=== PATIENT | female | born 1990 | race Caucasian/White ===

== ENCOUNTER 2019-10-20 22:52 | Emergency (ER) | payer MEDICAID, SELFPAY ==
[2019-10-20] VITALS (13 sets, daily range): BP systolic 106–144; BP diastolic 64–101; PULSE 75–89; RESP 16; TEMP 36.8; O2SAT 99–100; BMI 17.9
--- NOTE | 2019-10-20 22:53 | ECG_ITS ---
Measurements Intervals [place] Rate: 72 P: 63 AL: 129 QRS: 29 QRSD: 80 T: 49 QT: 402 QTc: 442 SINUS RHYTHM No previous ECG available for comparison Electronically Signed On 10-21-2019 20:40:54 ANTHROPOLOGIST by Allison Collazo M.D. [email or web address]
--- NOTE | 2019-10-20 22:57 | ED_ITS ---
HPI - Dizziness General: Chief Complaint: Headache Stated Complaint: dizzy/loc Time Seen by Provider: 10/20/19 22:57 Source: patient Mode of arrival: ambulatory Limitations: no limitations History of Present Illness: HPI Narrative: Patient comes in today with complaints of a headache and malaise for the last 2 days. Patient reports this evening she felt worse and got real lightheaded while sitting down and then lost consciousness and hit her head against the desk. Patient reports history of depression and anemia which she takes routine medications for. Patient appears mildly unwell. Patient appears in mild pain. Associated symptoms: Reports headache(s) Review of Systems General: Reports: 10 or more systems reviewed and unremarkable except in HPI and below Neuro: Reports: headache PFSH ED PFSH: Statuses (acute, chronic, etc) shown below reflect problem list status as previously entered and may not be historically accurate Social History Smoking and tobacco status: never smoked Physical Exam Const: COMMON NORMALS: no apparent distress and oriented x3 GENERAL APPEARANCE: cooperative HENMT: COMMON NORMALS: normocephalic, external ears normal, EAC's normal, TM's normal bilaterally and external nose normal HEAD & SCALP: normal to inspection and normocephalic FACE & SINUS: normal facial exam NOSE: external nose normal GENERAL EAR: hearing not grossly impaired EXTERNAL EAR: Yes external ears normal EXTERNAL AUDITORY CANAL: EAC's normal TYMPANIC MEMBRANE: TM's normal bilaterally MOUTH: oral and palatal mucosa normal THROAT: posterior oropharynx normal Eye: COMMON NORMALS: PERRL and EOMs intact bilaterally PUPIL: Yes PERRL Neck/C-Spine: COMMON NORMALS: full ROM and no lymphadenopathy Lymph: LYMPHATIC: no lymphedema noted Chest: COMMONS NORMALS: inspection of chest normal and palpation of chest normal Resp: COMMON NORMALS: normal respiratory effort and clear to auscultation bilaterally AUSCULTATION: clear to auscultation bilaterally Cardio: COMMON NORMALS: regular rate and regular rhythm RATE: regular rate RHYTHM: regular rhythm GI: COMMON NORMALS: normal to inspection, nondistended, normoactive bowel sounds and non-tender : COMMON NORMALS: Yes no CVA tenderness BLADDER/KIDNEY EXAM: Yes no CVA tenderness Back/Pelvis: COMMON NORMALS: no CVA tenderness and thoracic and lumbar spine normal to inspection Extremity: COMMON NORMALS: normal to inspection GENERAL: No edema Neuro: COMMON NORMALS: oriented x3, moves all extremities and no focal motor deficits Psych: COMMON NORMALS: mental status grossly normal and cooperative Skin: COMMON NORMALS: no rashes or lesions noted GENERAL SKIN EXAM: no rashes or lesions noted Course Vital Signs: Vital signs: Vital Signs Temperature 98.2 F 10/20/19 22:59 Pulse Rate 76 10/20/19 23:09 Respiratory Rate 16 10/20/19 22:59 Blood Pressure 104/65 10/21/19 00:25 Pulse Oximetry 100 10/21/19 00:25 MDM - Dizziness MDM Narrative: Medical decision making narrative: Patient comes in presents with headache starting yesterday. Patient reports history of migraine. Patient reports that headache is different than her usual migraine. Patient reports no previous CT scan of the head. Patient does have a chronic history of anemia. On exam respirations are even lungs are clear to auscultation. Skin is warm and dry and color is pale. Abdomen is soft with decreased bowel sounds. Differential diagnosis includes migraine, intracranial bleeding, sinusitis, tension headache, anemia. Laboratory values noted anemia with hemoglobin 8.7 which compared to previous history of 11 in July 2019. Discussion with patient realized patient occasionally has blood in her stool she has had problems with hemorrhoids in the past. Recommend probably patient have a upper and lower GI endoscopy for further evaluation which patient was agreeable for the case management referral. Patient also reported that her anemia is very chronic and she has been recommended to see a manager biostatistics but she has not been referred to at this time we will refer to hematology for further evaluation. Patient reports understanding, CT scan was negative for any intracranial bleeding. Patient was treated for her headache with good results. Patient reports understanding of care plan and need for follow-up. Lab Data: Labs: Lab Results 10/20/19 10/20/19 10/20/19 Range/Units 22:03 23:00 23:35 WBC 4.6 (4.0-10.0) 10^3/ uL RBC 4.06 L (4.1-5.3) 10^6/u L Hgb 8.7 L (11.5-15.3) g/dL Hct 30.4 L (37.0-47.0) % MCV 74.9 L (81-99) fL MCH 21.4 L (28.0-34.0) pg MCHC 28.6 L (30.0-36.0) g/dL RDW 20.5 H (12.1-15.1) % Plt Count 365 (130-400) 10^3/c mm MPV 8.6 (7.4-10.4) fL Neut % (Auto) 48.1 % Lymph % (Auto) 39.5 % Stevens % (Auto) 9.8 % Eos % (Auto) 1.7 % Baso % (Auto) 0.7 % Neut # (Auto) 2.2 (1.8-7.7) 10^3/u L Lymph # (Auto) 1.8 (0.8-4.8) 10^3/u L Stevens # (Auto) 0.5 (0.2-0.9) 10^3/u L Eos # (Auto) 0.1 (0.0-0.8) 10^3/u L Baso # (Auto) 0.0 (0.0-0.1) 10^3/u L Nucleated RBC % (a uto) 0 % Nucleated RBCs # 0.0 /100WBC Sodium 139 (136-145) mmol/L Potassium 3.6 (3.5-5.1) mmol/L Chloride 101 (98-107) mmol/L Carbon Dioxide 26 (22-29) mmol/L Anion Gap 15.6 (5-19) BUN 8 (6-20) mg/dL Creatinine 0.6 (0.5-0.9) mg/dL GFR Calculation 119.9 (90-130) mL/min Glucose 94 (65-115) mg/dL Calcium 9.9 (8.5-10.5) mg/dL Total Bilirubin 0.2 (0.15-1.2) mg/dL AST 19 (0-32) U/L ALT 9 (0-33) U/L Alkaline Phosphata se 82 (35-105) IU/L Total Protein 8.1 (6.6-8.7) g/dL Albumin 5.1 (3.5-5.2) g/dL Globulin 3.0 (1.3-4.6) g/dL HCG, Qual (Negative) Influenza Type A A g Negative (Negative) POC Influenza B Ag Negative (Negative) 10/20/19 Range/Units 23:45 WBC (4.0-10.0) 10^3/ uL RBC (4.1-5.3) 10^6/u L Hgb (11.5-15.3) g/dL Hct (37.0-47.0) % MCV (81-99) fL MCH (28.0-34.0) pg MCHC (30.0-36.0) g/dL RDW (12.1-15.1) % Plt Count (130-400) 10^3/c mm MPV (7.4-10.4) fL Neut % (Auto) % Lymph % (Auto) % Stevens % (Auto) % Eos % (Auto) % Baso % (Auto) % Neut # (Auto) (1.8-7.7) 10^3/u L Lymph # (Auto) (0.8-4.8) 10^3/u L Stevens # (Auto) (0.2-0.9) 10^3/u L Eos # (Auto) (0.0-0.8) 10^3/u L Baso # (Auto) (0.0-0.1) 10^3/u L Nucleated RBC % (a uto) % Nucleated RBCs # /100WBC Sodium (136-145) mmol/L Potassium (3.5-5.1) mmol/L Chloride (98-107) mmol/L Carbon Dioxide (22-29) mmol/L Anion Gap (5-19) BUN (6-20) mg/dL Creatinine (0.5-0.9) mg/dL GFR Calculation (90-130) mL/min Glucose (65-115) mg/dL Calcium (8.5-10.5) mg/dL Total Bilirubin (0.15-1.2) mg/dL AST (0-32) U/L ALT (0-33) U/L Alkaline Phosphata se (35-105) IU/L Total Protein (6.6-8.7) g/dL Albumin (3.5-5.2) g/dL Globulin (1.3-4.6) g/dL HCG, Qual Negative (Negative) Influenza Type A A g (Negative) POC Influenza B Ag (Negative) EKG Data^: EKG 1: Attestation: I personally reviewed and interpreted this EKG as follows: (2338, NSR, 72 bpm, regular rate, no ectopy, no st elevation) Discharge Plan Discharge Patient Disposition: Home, Self-Care Clinical Impression: Blood in stool Headache Qualifiers: Headache type: unspecified Headache chronicity pattern: acute headache Intractability: not intractable Qualified Code(s): R51 - Headache Anemia Qualifiers: Anemia type: unspecified type Qualified Code(s): D64.9 - Anemia, unspecified Condition: Stable Prescriptions: No Action buspirone 5 mg Tablet 5 mg PO TID RF: 0 Senna Laxative 8.6 mg Tablet 8.6 mg PO DAILY RF: 0 Celexa 20 mg Tablet 20 mg PO DAILY RF: 0 Iron (ferrous sulfate) 325 mg (65 mg iron) Tablet 325 mg PO TID RF: 0 Colace 100 mg Capsule 100 mg PO BID RF: 0 albuterol sulfate 90 mcg/actuation Hfa Aerosol Inhaler 1 inh INHALATION QID PRN (Reason: Shortness Of Breath Or Wheezing) RF: 0 Referrals: Jaki Bustamante MD [Primary Care Provider] - Discharge Diet: Usual diet Discharge Activity: Increase activity as tolerated Activity Restrictions/Additional Instructions: Drink plenty of fluids Activity as tolerated Follow-up with primary care in one week Return to ER for worsening symptoms or new concerns Coding Level of Care Code ED Fisheries Biologist for Cesia Curiel Exam Problem Focused
[2019-10-20 23:06] LABS: Basophils % 0.7 %; Eosinophils # 0.1 10^3/uL (0.0-0.8); Eosinophils % 1.7 %; Hematocrit 30.4 % (37.0-47.0); Hemoglobin 8.7 g/dL (11.5-15.3); Lymphocytes # 1.8 10^3/uL (0.8-4.8); Lymphocytes % 39.5 %; Mean Corpuscular HGB Conc 28.6 g/dL (30.0-36.0); Mean Corpuscular Hemoglobin 21.4 pg (28.0-34.0); Mean Corpuscular Volume 74.9 fL (81-99); Mean Platelet Volume 8.6 fL (7.4-10.4); Monocytes # 0.5 10^3/uL (0.2-0.9); Monocytes % 9.8 %; Neutrophils # 2.2 10^3/uL (1.8-7.7); Neutrophils % 48.1 %; Nucleated Red Blood Cells % 0 %; Platelet Count 365 10^3/cmm (130-400); Red Blood Count 4.06 10^6/uL (4.1-5.3); Red Cell Distribution Width 20.5 % (12.1-15.1); White Blood Count 4.6 10^3/uL (4.0-10.0)
--- NOTE | 2019-10-20 23:07 | CTR_ITS ---
PROCEDURE INFORMATION: Exam: CT Head Without Contrast Exam date and time: 10/20/2019 11:28 PM Age: 29 years old Clinical indication: Pain; Dizziness and syncope and collapse; Headache not specified; Additional info: Headache anemia TECHNIQUE: Imaging protocol: Computed tomography of the head without contrast. Total DLP: 835.07 mGy-cm Radiation optimization: All CT scans at this facility use at least one of these dose optimization techniques: automated exposure control; mA and/or kV adjustment per patient size (includes targeted exams where dose is matched to clinical indication); or iterative reconstruction. COMPARISON: CT head wo con* [id number] 05/01/2015 9:45 PM FINDINGS: Brain: Normal. No hemorrhage. Unremarkable white matter. No mass effect. Ventricles: Normal. No ventriculomegaly. Bones/joints: Unremarkable. No acute fracture. Sinuses: Visualized sinuses are unremarkable. No fluid levels. Mastoid air cells: Visualized mastoid air cells are well aerated. Soft tissues: Unremarkable. CT/CT head wo con* [id number] IMPRESSION: No acute intracranial abnormality. Radiation Dose CTDIVOL = (mGy): DLP = 835.07 (mGy-cm)
[2019-10-20] MEDS: HYDROcodone-acetaminophen 5-325 mg Tablet 1 TAB PO (23:15)
[2019-10-20 23:33] LABS: Alanine Aminotransferase 9 U/L (0-33); Albumin Level 5.1 g/dL (3.5-5.2); Alkaline Phosphatase 82 IU/L (35-105); Anion Gap 15.6 (5-19); Aspartate Amino Transferase 19 U/L (0-32); Blood Urea Nitrogen 8 mg/dL (6-20); Calcium 9.9 mg/dL (8.5-10.5); Carbon Dioxide 26 mmol/L (22-29); Chloride 101 mmol/L (98-107); Glomerular Filtration Rate 119.9 mL/min (90-130); Glucose 94 mg/dL (65-115); Potassium 3.6 mmol/L (3.5-5.1); Sodium 139 mmol/L (136-145); Total Bilirubin 0.2 mg/dL (0.15-1.2); Total Protein 8.1 g/dL (6.6-8.7)
--- NOTE | 2019-10-20 23:36 | PC.NURSE ---
done by nurse
[2019-10-20 23:57] LABS: HCG Qualitative Urine. Negative (Negative)
[2019-10-21] VITALS (14 sets, daily range): BP systolic 104–130; BP diastolic 65–73; PULSE 81; RESP 18; O2SAT 98–100
[2019-10-21 00:05] LABS: Influenza A by IFA Negative (Negative); Influenza B by IFA Negative (Negative)
[2019-10-21] MEDS: ketorolac 30 mg/mL INJ IM (01:08)
[2019-10-21] MEDS: promethazine 25 mg/mL SDV 1 mL IM (01:08)
--- NOTE | 2019-10-22 14:15 | DCPLANNER ---
trailer park manager had message to schedule a follow up appointment for patient with [facility] and a diagnostic technician. trailer park manager called [facility], spoke with Linnette, a follow up appointment is scheduled for Friday, October 27, 2019 at 1:[address] Beltran. trailer park manager also had a referral for a diagnostic technician, case resolution specialist called Melany Brownlee at oncology and left a voice mail for her to return case finisher phone call. trailer park manager called and left a message for patient to return case finisher phone call.
--- NOTE | 2019-10-28 09:51 | DCPLANNER ---
Addendum entered by Danica Sood 10/28/19 10:10: A follow up appointment with [facility] has been rescheduled for Sunday, November 03, 2019 at 2:[address] Beltran. Original Note: condominium association manager called Melany Brownlee at [facility], and made referral to a hematology. condominium association manager was told that patients information would be printed and reviewed. Clinic will call trimming caser and patient with appointment information. condominium association manager also noticed that patients appointment that was scheduled with [facility] had been cancelled. condominium association manager called patient to update patient about referral to hematology, and that the clinic will be calling patient with appointment information. condominium association manager asked patient about appointment scheduled, patient had wrong date written down. condominium association manager transferred patient to the clinic to reschedule that appointment.
--- NOTE | 2019-11-19 08:14 | DCPLANNER ---
Appointment with [facility] was rescheduled and patient did attend appointment.
== END 2019-10-21 01:51 | disposition home or self-care (01) ==
PROVIDERS: Emergency Medicine; Emergency Provider Nurse Practitioner Family; Family Provider Family Medicine; PCP Family Medicine
DX: K92.1 Melena (principal); R51 Headache; D64.9 Anemia, unspecified
CPT/HCPCS: 36415; 70450; 80053; 81025; 85025; 87804; 93005; 96372; 99284; J1885; J2550

== ENCOUNTER 2019-11-10 13:53 | Outpatient (CLI) | payer MEDICAID, SELFPAY ==
[2019-11-10 14:47] LABS: Basophils % 0.9 %; Eosinophils # 0.1 10^3/uL (0.0-0.8); Eosinophils % 2.6 %; Hematocrit 31.4 % (37.0-47.0); Hemoglobin 8.9 g/dL (11.5-15.3); Lymphocytes # 1.7 10^3/uL (0.8-4.8); Lymphocytes % 38.1 %; Mean Corpuscular HGB Conc 28.3 g/dL (30.0-36.0); Mean Corpuscular Hemoglobin 21.3 pg (28.0-34.0); Mean Corpuscular Volume 75.1 fL (81-99); Mean Platelet Volume 9.2 fL (7.4-10.4); Monocytes # 0.5 10^3/uL (0.2-0.9); Monocytes % 11.2 %; Neutrophils # 2.2 10^3/uL (1.8-7.7); Neutrophils % 47.2 %; Nucleated Red Blood Cells % 0 %; Platelet Count 353 10^3/cmm (130-400); Red Blood Count 4.18 10^6/uL (4.1-5.3); White Blood Count 4.6 10^3/uL (4.0-10.0)
[2019-11-10 18:06] LABS: Ferritin 5 ng/mL (15-150); Iron 21 ug/dL (37-145); Percent Saturation 5.1 % (20-50); Total Iron Binding Capacity 408 mcg/dl; Unsaturated Iron Binding 387 ug/dL (112-347)
[2019-11-10 18:21] LABS: Vitamin B12 357 pg/mL (232-1245)
--- NOTE | 2019-11-11 15:01 | ONC CON_ITS ---
Dr. Morris New Patient Note Patient: Kina Perrin Unit #: [id number]: [id number] Dicatated By: Maryse Morris M.D.Date of Visit: Nov 10, 2019 Onc MED New Patient/Consult Referring Physician: Bhanu Azevedo NP History of Present Illness: Mrs. Kina Perrin, is a 29-year-old female with lifelong history of anemia, as per patient she thinks she was about 8-year-old when she was told about anemia and has been taken oral iron off and on since then as per patient in 2010 when she went for blood donation, she was found to have hemoglobin around 6 g and she was given 2 units of packed RBCs, and then in April 2017, when she was her hemoglobin dropped down to 6.4 g at that time she was given 3 units of packed RBCs and third time in July 2019 her routine follow-up lab showed hemoglobin down 7.2 g and she was given 2 units of packed RBCs with that her hemoglobin improved to 11 g. Then repeat labs on 10/20/2019 in her PMDs office showed white blood count 4.6 hemoglobin 8.7 hematocrit 30.4 MCV 74.9 platelets 365,000 was on oral iron supplement. She was referred to hematology clinic for evaluation Patient has history of hemorrhoids for which she underwent surgery with some relief and as per patient at that time she underwent low colonoscopy but not the full exam. Never had EGD done. She also has history of heavy menstrual periods Usually last 5-7 days and first 4-5 days of really heavy, as per patient she did underwent uterine biopsy and evaluation and she was told she has benign ovarian cysts She will also diagnosed with early-stage cervical cancer in March 2019 at that time she underwent conization now being monitored by SOFTWARE APPLICATION TESTER. X She has family history of B12 deficiency anemia and most of her family member take B12 supplements. Next No family history of hemoglobinopathy. Patient denies any history of jaundice, denies any history of melena or hematochezia except some to fresh blood in her stools due to hemorrhoids. Complaining of generalized weakness and fatigue, also palpitation and shortness of breath on exertion and some time low extremity edema. Also complaining of craving for ice Patient denies any night sweats, denies any weight loss or recent fevers. Denies any peripheral lymphadenopathy. Denies any heartburn indigestion but sometime cramps and constipation and darker stools due to iron supplement. Past Medical History: Anemia. Past Surgical History: Ms. Perrin's surgical/procedural history consists of colonoscopy. Cone biopsy of cervix . Medications: busPIRone HCl 1 Tablet (of 5 mg) Oral t.i.d., CeleXA 1 Tablet (of 20 mg) Oral daily, Colace 1 - 2 Capsule (of 100 mg) Oral daily PRN, Ferrous Sulfate 1 Tablet (of 325 (65 fe) mg) Oral daily, Senna 1 - 2 Tablet (of 8.6 mg) Oral b.i.d. PRN Allergies: fentaNYL, Latex, Peaches, and Strawberries. Social History: Ms. Perrin is single. Ms. Prerin has never smoked. She has no history of drinking. Family History: There is no documented family history. Review Of Symptoms: Constitutional - Appetite is good and weight is stable. No fever, chills, hot flashes, or night sweats. Energy level is fair but Pt fatigues easily, ENMT - No sinus congestion/drainage. No mouth sores. No sore throat or difficulty swallowing, Hematologic/Lymphatic - Positive for easy bruising, Respiratory - Positive for shortness of breath. No cough. No pleuritic pain or hemoptysis, Cardiovascular - No angina pain. No palpitations, Gastrointestinal - Occasional nausea, no vomiting. No heartburn or acid reflux. No diarrhea. Positive for constipation. No blood in the stool or black stools, Genitourinary (F) - No dysuria or hematuria. Positive for urinary frequency. No urgency or incontinence, Musculoskeletal - Positive for joint pain, Neurologic - No headache or dizziness. No numbness/paresthesias or other focal neurologic symptoms, Psychiatric - Positive for anxiety and depression. Vital Signs: Performed on Nov 10, 2019 15:28: 0, 22.68, 1.56 sq.m, 62 in, 99 %, 75 /min, 16 /min, 112/69 mm(hg), 98.6 F, and 124 lbs (HIGH). Performance Status: 0 - Fully active, able to carry on all predisease activities without restrictions. (ECOG) Physical Examination: ENMT - No oral exudates, ulcers, masses, thrush or mucositis. Oropharynx clear. Tongue normal, Hematologic/Lymphatic - No petechiae or purpura. No tender or palpable lymph nodes in the cervical, supraclavicular, axillary or inguinal area, Respiratory - Lungs are clear to auscultation without rhonchi or wheezing, Cardiovascular - Regular rate and rhythm of heart, Abdomen - Non-tender, non-distended, . Good bowel sounds. No guarding or rebound tenderness. No pulsatile masses, Extremities - no edema. Lab/Imaging: Most recent lab results are not available for this patient. Impression: Microcytic hypochromic anemia most likely due to iron deficiency due to iron malabsorption or blood loss due to heavy menstrual periods or hemorrhoids, or GI. History of early cervical cancer status post conization in March 2019 History of blood transfusion, in July 2019, April 2017 and in 2010. Plan: Discussed with patient regarding her labs white blood count 4.6 and globin 8.9 hematocrit 31.4 platelets 352,000 MCV 75.1 Clinically, patient is symptomatic due to moderate microcytic anemia due to iron deficiency, probably due to having issue. And GI blood loss including due to hemorrhoids, possible concomitant iron malabsorption, as patient mentioned most of her family member taking B12 supplements for possible pernicious anemia, on oral iron off and on for many years, never had normal hemoglobin means possibility of iron malabsorption or noncompliant. Now patient is drop intolerance to oral iron e.g. complaining of abdominal cramps, constipation, indigestion At this point, patient is scheduled see Dr. gaona or possible EGD and colonoscopy Also following SOFTWARE APPLICATION TESTER regarding history of early-stage cervical cancer and heavy menstrual periods, the past but control pill was tied, as per patient she did not tolerate So we will do iron studies, check B12 folate level and discontinue oral iron because of intolerance and possible malabsorption and consider Injectafer 750 mg IV weekly ???2 and then she will return to clinic 1 month after second dose of Injectafer with CBC and iron studies. And will follow with Dr. gaona 's evaluation. Signed By: Maryse Morris M.D. <<Signature on File>>
== END 2019-11-10 13:54 | disposition home or self-care (01) ==
LOC: ONCMED 14:00
PROVIDERS: Family Provider Family Medicine; PCP Family Medicine; Visit Provider Internal Medicine Hematology & Oncology
DX: D50.9 Iron deficiency anemia, unspecified (principal); N92.0 Excessive and frequent menstruation with regular cycle; K90.9 Intestinal malabsorption, unspecified; Z85.41 Personal history of malignant neoplasm of cervix uteri
CPT/HCPCS: 82607; 82728; 82746; 83540; 83550; 85025; 85045; 99204

== ENCOUNTER 2019-11-23 14:05 | Outpatient (CLI) | payer MEDICAID, SELFPAY ==
[2019-11-23] MEDS: sodium chloride 0.9% 250 ML 75 ML IV (14:30)
== END 2019-11-23 14:06 | disposition home or self-care (01) ==
LOC: ONCMED 14:06
PROVIDERS: Family Provider Family Medicine; PCP Family Medicine; Referring Provider Nurse Practitioner Family; Visit Provider Internal Medicine Hematology & Oncology
DX: D50.9 Iron deficiency anemia, unspecified (principal)
CPT/HCPCS: 96365; J1439; J7050

== ENCOUNTER 2019-11-30 07:02 | Day surgery (SDC) | payer MEDICAID, SELFPAY ==
[2019-11-30 07:17] VITALS: BMI 21.9
[2019-11-30 07:37] VITALS: BP 109/71; PULSE 75; RESP 18; TEMP 36.6; O2SAT 100
[2019-11-30] MEDS: sodium chloride 0.9% 1,000 ML 30 ML IV (07:43)
[2019-11-30 07:51] LABS: OR HCG Qualitative Urine Negative (Negative)
--- NOTE | 2019-11-30 08:07 | ANES.PREANE2 ---
Pre-Anesthetic Assessment Pre-Anesthetic Assessment: Height/Weight: Height 1.57 m Weight 54.431 kg Temp Pulse Resp BP Pulse Ox 98 F 75 18 109/71 100 11/30/19 07:37 11/30/19 07:37 11/30/19 07:37 11/30/19 07:37 11/30/19 07:37 Preop Diagnosis: Bleeding per rectum Proposed Procedure: Operation Date: 11/30/19 08:30 Proposed Procedures p EGD [id number]/allergic to latex(Not Applicable) - Vadim Beltran MD s Colonoscopy(Not Applicable) - Vadim Beltran MD s Exam Under Anesthesia(Not Applicable) - Vadim Beltran MD s Hemorroidectomy(Not Applicable) - Vadim Beltran MD Last intake: Intake Last Liquid Date 11/29/19 Last Liquid Time 21:00 Last Solid Date 11/28/19 Last Solid Time 23:55 Exam: Pre-Anes Outpt Exam: alert and oriented x 3 Pulmonary: Pulmonary: Asthma Comments: with panic attack GI: Comments: bleeding per rectum, hemmorrhoids Neuropsych: Neuropsych: Depression and [place] (hx migraine, +today) Anesthetic Plan: ASA status: 2 Anesthesia: MAC Meds/Allergies Current Medications: Current Medications Generic Name Dose Route Start Last Admin Trade Name Freq PRN Reason Stop Dose Admin Sodium Chloride 1,000 mls @ 30 ml s/hr 11/30/19 07:15 11/30/19 07:43 Sodium Chloride 0.9% IV 12/01/19 07:14 30 mls/hr .Q24H MICHAEL Administration PFSH Anesthesia PFSH: Social History Smoking and tobacco status: never smoked Alcohol intake: never Female Reproductive History: Date of last menstrual period: 11/08/19 Data Anesthesia Other Labs: Laboratory Results - last 48 hr 11/30/19 07:28 Urine HCG, Qual Negative Cardiac Studies: No Data to Display
[2019-11-30] MEDS: promethazine 25 mg/mL SDV 1 mL IM (09:02)
[2019-11-30] MEDS: ketorolac 30 mg/mL INJ IM (09:06)
--- NOTE | 2019-11-30 09:20 | W.PM.OPSUD ---
Surgery/Procedure H&P Update DATE OF PROCEDURE: November 30, 2019 DATE H&P PERFORMED: 11/17/19 H&P UPDATE INFORMATION: I have reviewed H&P completed within last 30 days, I have examined patient prior to procedure and No changes to prior documentation PREOP DIAGNOSIS: Bleeding per rectum PRIMARY INDICATION FOR PROCEDURE: The same PLANNED PROCEDURE: Operation Date: 11/30/19 08:30 Proposed Procedures p EGD [id number]/allergic to latex(Not Applicable) - MD amy Alanis Colonoscopy(Not Applicable) - MD amy Alanis Exam Under Anesthesia(Not Applicable) - Vadim Beltran MD s Hemorroidectomy(Not Applicable) - Vadim Beltran MD
--- NOTE | 2019-11-30 10:53 | SUR.OPER ---
SURGICEL 4X8 WAS USED IN THE RECTUM. LOT [id number] EXP 04/07/24.
--- NOTE | 2019-11-30 11:22 | P.OP_ITS ---
Operative Report Date of procedure: November 30, 2019 Pre-op Diagnosis: Bleeding per rectum Post-op diagnosis: same Post-op Diagnosis: Internal hemorrhoids grade II Left lower lateral, right lower lateral and right upper lateral hemorrhoids Normal EGD and colonoscopy except for the internal hemorrhoids with bleeding tendency Procedure Done: Esophagogastroduodenoscopy and colonoscopy with examination under anesthesia and hemorrhoidectomy. Bilateral pudendal nerve block Specimens removed/disposition: Left lower lateral hemorrhoid, right lower la teral and right upper lateral hemorrhoids Surgeon: Vadmi Beltran Reflow Operator: Jaymie Espinoza Reflow Operator: Circulating nurse Sowmya Anesthesia: General (fall intern Martín) Estimated blood loss (mL): 10 Condition: stable Disposition: same day Brief History: This is a pleasant 29 years old female patient with history of anemia and bleeding per rectum, was referred to me for EGD and colonoscopy and to manage her hemorrhoids. After thorough history physical examination and reviewing the chart I counseled the patient for diagnostic EGD and colonoscopy with exam under anesthesia and hemorrhoidectomy. An informed consent per chart Procedure: Patient was identified in the holding area, was taken to the OR placed first in supine position, timeout was done verifying the patient's name, date of , and procedure, all were in agreement. IV propofol was infused by the ROLL TENSION TESTER then intubated, patient was placed in left lateral position after a bite block was placed in her mouth, started by introducing the EGD via the mouth under direct visualization, the patient was continuously monitored via online project manager, I was able to assess the esophagus stomach and duodenum till the second part, normal findings were appreciated GE junction at 40 cm from the incisors. The scope was retrieved under direct visualization and gas was deflated,no biopsies were obtained at that point. Following that a digital rectal examination was done that was normal except for some small hemorrhoid, before insertion of the colonoscopy, the scope was then introduced via the anus under direct visualization, all the way to the cecum, prep of the colon was fair, noticed tortuosity of the colon, there were no polyps identified or masses or diverticular disease or strictures, the scope was then retrieved back ,time for withdrawal exceeded 6 minutes, gas was deflated on the way out. Retroflex was done at the end showing no abnormalities of the anal canal except for internal hemorrhoids. At that time after scrubbing. Prep and drape was done thereafter under the usual sterile technique,started by pudendal nerve block bilaterally,injecting 15 mL of Exparel on each side , guided by the examining finger towards the ischial spine bilaterally, followed by that digital rectal examination showed no masses were appreciated or bleeding. Anoscope was then introduced I was able to identify the internal/external left lower lateral and right lower lateral and right upper lateral hemorrhoids grade II, I placed a wet 4 x 4 inside the anal canal to prevent stools from encroaching on the wound site, that was taken out at the end of the procedure. I did apply a hemostat at the origin of the hemorrhoidal tissue, onto the left lower lateral hemorrhoid first,using harmonic scalpel device for dissection safeguarding the external anal sphincter after that I was able to deliver the specimen to the circulating nurse hemostasis was achieved,and running 3-0 chromic catgut suture was applied to approximate the edges of the hemorrhoidectomy site, that was done after thorough irrigation of the wound with warm normal saline, same technique was repeated as I did appreciate a right lower and upper lateral hemorrhoids grade II, excised with the same technique using the harmonic scalpel in a running 3-0 chromic gut got was achieved. Hemostasis was achieved At that point after removal of the 4 x 4'sx1, I applied a piece of Xeroform impregnated lidocaine 2% jelly at the site of the wound and a piece of Surgicel both were rolled up as a Cigar like and and 2-0 silk stitch was applied at the end that faces the exit of the anus as it will be easier to pull out later on, followed by 4 x 4 application and ABD .,a surgical pants was then placed to hold the dressing in place. Count was completed at the end of the procedure, patient was then extubated and was taken to the recovery room in stable condition I was present for the whole entire procedure
[2019-11-30 11:25] VITALS: BP 113/68; PULSE 99; RESP 17; TEMP 36.6; O2SAT 96
[2019-11-30 11:30] VITALS: BP 104/64; BP 127/70; PULSE 94; RESP 22; RESP 23; O2SAT 100
[2019-11-30 11:35] VITALS: BP 127/70; PULSE 86; RESP 17; TEMP 36.4; O2SAT 100
--- NOTE | 2019-11-30 11:42 | SUR.PHASEI ---
PT AWAKE ALERT TALKING TO DR ANDERS, VSS REPORT TO OPS.
[2019-11-30 11:52] VITALS: BP 93/80; PULSE 81; RESP 16; TEMP 37.1; O2SAT 99
[2019-11-30 12:15] VITALS: BP 107/63; PULSE 63; RESP 18; O2SAT 99
[2019-11-30] MEDS: HYDROcodone-acetaminophen 5-325 mg Tablet 1 TAB PO (12:19)
== END 2019-11-30 12:45 | disposition home or self-care (01) ==
PROVIDERS: Anesthesiology; Family Provider Family Medicine; PCP Family Medicine; Visit Provider Surgery
PROC: 0DJ08ZZ Inspection of Upper Intestinal Tract, Via Natural or Artificial Opening Endoscopic (ICD-10-PCS; CPT 43235; principal; 2019-11-30 09:15)
PROC: 0DJD8ZZ Inspection of Lower Intestinal Tract, Via Natural or Artificial Opening Endoscopic (ICD-10-PCS; CPT 45378; 2019-11-30 09:15)
PROC: (CPT 43235; 2019-11-30 09:15)
PROC: (CPT 43235; 2019-11-30 09:15)
DX: K62.5 Hemorrhage of anus and rectum (principal); K64.8 Other hemorrhoids
CPT/HCPCS: 43235; 45378; 46260; 12345; 81025; 84703; 88304; 96365; 96372; C9290; J0131; J0694; J1100; J1439; J1885; J2001; J2270; J2405; J2550; J2704; J2710; J3010; J3490; J7030

== ENCOUNTER 2020-06-08 14:05 | Outpatient (CLI) | payer MEDICAID, SELFPAY ==
[2020-06-08 14:53] LABS: Basophils % 0.4 %; Eosinophils # 0.1 10^3/uL (0.0-0.8); Eosinophils % 2.2 %; Hematocrit 34.9 % (37.0-47.0); Hemoglobin 11.6 g/dL (11.5-15.3); Lymphocytes # 1.8 10^3/uL (0.8-4.8); Lymphocytes % 39.6 %; Mean Corpuscular HGB Conc 33.2 g/dL (30.0-36.0); Mean Corpuscular Hemoglobin 31.7 pg (28.0-34.0); Mean Corpuscular Volume 95.4 fL (81-99); Mean Platelet Volume 10.4 fL (7.4-10.4); Monocytes # 0.4 10^3/uL (0.2-0.9); Monocytes % 8.9 %; Neutrophils # 2.19 10^3/uL (1.8-7.7); Neutrophils % 48.7 %; Nucleated Red Blood Cells % 0 %; Platelet Count 253 10^3/cmm (130-400); Red Blood Count 3.66 10^6/uL (4.1-5.3); Red Cell Distribution Width 11.3 % (12.1-15.1); White Blood Count 4.5 10^3/uL (4.0-10.0)
[2020-06-08 15:17] LABS: Alanine Aminotransferase 9 U/L (0-33); Albumin Level 4.7 g/dL (3.5-5.2); Alkaline Phosphatase 78 IU/L (35-105); Anion Gap 12.5 (5-19); Aspartate Amino Transferase 17 U/L (0-32); Blood Urea Nitrogen 10 mg/dL (6-20); Calcium 9.4 mg/dL (8.5-10.5); Carbon Dioxide 26 mmol/L (22-29); Chloride 106 mmol/L (98-107); Ferritin 19 ng/mL (15-150); Globulin 2.5 g/dL (1.3-4.6); Glomerular Filtration Rate 146.9 mL/min (90-130); Glucose 108 mg/dL (65-115); Iron 55 ug/dL (37-145); Osmolality Calculated 292 mOsm/kg (285-295); Percent Saturation 23.9 % (20-50); Potassium 3.5 mmol/L (3.5-5.1); Sodium 141 mmol/L (136-145); Total Bilirubin 0.4 mg/dL (0.15-1.2); Total Iron Binding Capacity 230 mcg/dl; Total Protein 7.2 g/dL (6.6-8.7); Unsaturated Iron Binding 175 ug/dL (112-347)
--- NOTE | 2020-06-09 12:47 | ONC FU_ITS ---
Dr. Morris follow up note Patient: Kina Perrin Unit #: [id number]: 1990 Dicatated By: Maryse Morris M.D.Date of Visit:Jun 08, 2020 Onc Med Follow-up/Prog Note History of Present Illness: Mrs. Kina Perrin, is a 30-year-old female with lifelong history of anemia, as per patient she thinks she was about 8-year-old when she was told about anemia and has been taken oral iron off and on since then as per patient in 2010 when she went for blood donation, she was found to have hemoglobin around 6 g and she was given 2 units of packed RBCs, and then in April 2017, when she was her hemoglobin dropped down to 6.4 g at that time she was given 3 units of packed RBCs and third time in July 2019 her routine follow-up lab showed hemoglobin down 7.2 g and she was given 2 units of packed RBCs with that her hemoglobin improved to 11 g. Then repeat labs on 10/20/2019 in her PMDs office showed white blood count 4.6 hemoglobin 8.7 hematocrit 30.4 MCV 74.9 platelets 365,000 was on oral iron supplement. She was referred to hematology clinic for evaluation Patient has history of hemorrhoids for which she underwent surgery with some relief and as per patient at that time she underwent low colonoscopy but not the full exam. Never had EGD done. 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 X She has family history of B12 deficiency anemia and most of her family member take B12 supplements. Next No family history of hemoglobinopathy. Patient denies any history of jaundice, denies any history of melena or hematochezia except some to fresh blood in her stools due to hemorrhoids. Complaining of generalized weakness and fatigue, also palpitation and shortness of breath on exertion and some time low extremity edema. Also complaining of craving for ice Patient denies any night sweats, denies any weight loss or recent fevers. Denies any peripheral lymphadenopathy. Denies any heartburn indigestion but sometime cramps and constipation and darker stools due to iron supplement. Came for follow-up, complaining of generalized weakness and fatigue, denies any melena or hematochezia or hemoptysis or hematemesis denies any chest pain or shortness of breath or palpitation patient said her menstrual periods are not heavy anymore. And she is concerned her iron may be low Medications: busPIRone HCl 1 Tablet (of 5 mg) Oral t.i.d., CeleXA 1 Tablet (of 20 mg) Oral daily, Colace 1 - 2 Capsule (of 100 mg) Oral daily PRN, Ferrous Sulfate 1 Tablet (of 325 (65 fe) mg) Oral daily, Senna 1 - 2 Tablet (of 8.6 mg) Oral b.i.d. PRN Allergies: fentaNYL, Latex, Peaches, and Strawberries. Review of Systems: Constitutional - Appetite is good and weight is stable. No fever, chills, hot flashes, or night sweats. Energy level is fair but Pt fatigues easily, ENMT - No sinus congestion/drainage. No mouth sores. No sore throat or difficulty swallowing, Hematologic/Lymphatic - Positive for easy bruising, Respiratory - Positive for shortness of breath. No cough. No pleuritic pain or hemoptysis, Cardiovascular - No angina pain. No palpitations, Gastrointestinal - Occasional nausea, no vomiting. No heartburn or acid reflux. No diarrhea. Positive for constipation. No blood in the stool or black stools, Genitourinary (F) - No dysuria or hematuria. Positive for urinary frequency. No urgency or incontinence, Musculoskeletal - Positive for joint pain, Neurologic - No headache or dizziness. No numbness/paresthesias or other focal neurologic symptoms, Psychiatric - Positive for anxiety and depression. Vital Signs: Performed on Jun 08, 2020 15:21 Height - 62.00 in Weight - 126.2 lbs (HIGH) BSA - 1.57 sq.m BMI - 23.08 Temperature - 98.6 F Pulse - 72 /min Respiration - 18 /min BP - 119/64 mm(hg) O2 Sat - 100 % Pain - 3 Performance Status: 0 - Fully active, able to carry on all predisease activities without restrictions. (ECOG) Physical Examination: ENMT - No mouth sores, no thrush, no joint, Respiratory - Lungs are clear to auscultation, Cardiovascular - Regular rate and rhythm of heart, Abdomen - Soft, bowel sounds per, Extremities - No visible edema. Lab/Imaging: Most recent lab results are not available for this patient. Impression: Microcytic hypochromic anemia most likely due to iron deficiency due to iron malabsorption or blood loss due to heavy menstrual periods or hemorrhoids, or GI. History of early cervical cancer status post conization in March 2019 History of blood transfusion, in July 2019, April 2017 and in 2010. Plan: Discussed with patient regarding her labs white blood count 4.5 hemoglobin 11.6 hematocrit 34.9 platelets 253,000 CMP within normal limits iron studies shows iron saturation 23.9% ferritin 19 iron 55 Clinically, patient is doing reasonably well now with progressive generalized weakness and fatigue which could be multifactorial, patient take antianxiety medicine off and on. That can cause generalized weakness and fatigue as her hemoglobin is in a decent range although her iron studies are within normal range but on the low side of normal, we will continue to monitor and she will return to clinic in 1 month with CBC and iron studies and if there is a further drop in her iron stores or hemoglobin, will consider Injectafer. Signed By: Maryse Morris M.D. <<Signature on File>>
== END 2020-06-08 14:06 | disposition home or self-care (01) ==
PROVIDERS: PCP Family Medicine; Visit Provider Internal Medicine Hematology & Oncology
DX: D50.9 Iron deficiency anemia, unspecified (principal)
CPT/HCPCS: 36415; 80053; 82728; 83540; 83550; 85025; G0463

== ENCOUNTER 2020-07-19 18:49 | Emergency (ER) | payer MEDICAID, SELFPAY ==
[2020-07-19 18:54] VITALS: BP 118/84; PULSE 68; RESP 18; TEMP 36.3; O2SAT 96; BMI 21.9
--- NOTE | 2020-07-19 18:58 | XR_ITS ---
WS: [id number] Left hand, 3 views, 07/19/2020 Clinical Data: injury to index finger Comparison: None. Findings: No fractures or dislocations are seen. The soft tissues are unremarkable. The joint spaces are normal XR/XR hand LT min 3V* [id number] Impression: Negative left hand.
--- NOTE | 2020-07-19 19:17 | ED_ITS ---
HPI - Wound/Laceration General: Chief Complaint: Wound/Laceration Stated Complaint: cutting injury to left finger Time Seen by Provider: 07/19/20 19:17 History of Present Illness: HPI narrative: Patient is a 30-year-old female comes to the ED with a laceration to the left finger. Patient says she was cutting some potatoes and accidentally cut the tip of her left index finger. She was able to control the bleeding with pressure rag. She says she is up-to-d ate on her tetanus and received dose about 2 years ago. Associated symptoms: Denies chills, fever(s), nausea or vomiting Review of Systems Const: Denies: fever(s), chills or fatigue Eyes: Denies: change in vision or eye discomfort ENMT: Denies: throat pain, odynophagia, nasal discharge or nasal congestion Card: Denies: chest pain, palpitations, edema, swelling of feet/ankles, dyspnea on exertion or orthopnea Resp: Denies: dyspnea, productive cough or non-productive cough GI: Denies: abdominal pain, nausea, vomiting, diarrhea, constipation or hematochezia : Denies: flank pain, dysuria or hematuria Musc: Denies: neck pain, back pain or extremity swelling Skin/Breast: Reports: new lesions (Laceration to tip of index finger.); Denies: rash Neuro: Denies: headache(s), numbness in extremities or weakness in extremities PFS ED PFSH: Medical History Cervical cancer History of hemorrhoids Hypoglycemic disorder Iron deficiency anemia Migraine Family History Other Bleeding disorder Diabetes Denies family history of Anesthesia complication Social History Smoking and tobacco status: never smoked Alcohol intake: never Female Reproductive History: Date of last menstrual period: 11/08/19 Physical Exam Const: COMMON NORMALS: patient oriented x3 HENMT: COMMON NORMALS: normocephalic HEAD & SCALP: normocephalic MOUTH: Normal oral and palatal mucosa present THROAT: posterior oropharynx normal and uvula midline Neck/C-Spine: COMMON NORMALS: supple GENERAL: Yes normal visual inspection Resp: COMMON NORMALS: normal respiratory effort, No retractions, No use of accessory muscles and clear to auscultation bilaterally AUSCULTATION: clear to auscultation bilaterally Cardio: COMMON NORMALS: regular rate, regular rhythm, S1 normal heart sound present, S2 normal heart sound present, No gallops present (Cardio), No clicks present (Cardio), No murmurs present (Cardio) and Peripheral pulses 2+ throughout RATE: regular rate RHYTHM: regular rhythm HEART SOUNDS: S1 normal heart sound present and S2 normal heart sound present PERIPHERAL PULSES: Peripheral pulses 2+ throughout GI: COMMON NORMALS: Normal to inspection, nondistended, normoactive bowel sounds present, Soft to palpation, non-tender and no masses PALPATION: Yes Soft to palpation : COMMON NORMALS: Yes no CVA tenderness BLADDER/KIDNEY EXAM: Yes no CVA tenderness Back/Pelvis: COMMON NORMALS: no CVA tenderness Extremity: NARRATIVE EXTREMITY EXAM: Left hand?small 0.5 centimeter linear laceration to tip of left index finger. Not actively bleeding. No erythema, warmth or purulent drainage. No injury to nail. GENERAL: Yes normal exam except as noted Neuro: COMMON NORMALS: patient oriented x3 and moves all extremities Skin: GENERAL SKIN EXAM: dry skin Procedures Laceration Laceration 1: Site: hand (index finger) Side (If applicable): left Size (cm): 0.5 Description: flap and clean Depth: simple, single layer Local Anesthetic: lidocaine 2% (digital block performed, since lac close to nail bed.) Pre-repair: irrigated extensively (With normal saline) Skin layer closed with: nylon Size (cm): 4-0 Number of sutures: 2 Technique: simple, interrupted Nerve Block Nerve Block 1: Time out performed: Yes Local Anesthetic: lidocaine 2% Amount of anesthesia used (mL): 10 Side: left Nerve Blocks: digital (2nd digit) Procedure Successful: Yes Patient Tolerated Procedure: well Complications: none Course Vital Signs: Vital signs: Vital Signs Temperature 97.3 F L 07/19/20 20:17 Pulse Rate 68 07/19/20 18:54 Respiratory Rate 18 07/19/20 20:17 Blood Pressure 118/84 07/19/20 18:54 Pulse Oximetry 96 07/19/20 20:17 MDM - Wound/Laceration MDM Narrative: Medical decision making narrative: Patient is a 22-year-old female comes the ED with laceration on left index finger. She is up-to-date on her tetanus. X-ray of left hand showed no acute fractures or findings. Laceration site was irrigated extensively with normal saline. Digital block was performed and 2 sutures were placed to close laceration. Patient was discharged and sent with a prescription for cephalexin as prophylactic treatment for infection. Return to ED precautions given. Follow-up with medical provider to have sutures removed in 7 to 10 days. Patient understood and agreed with plan. Imaging Data^: Xray Ortho: Attestation: I personally reviewed and interpreted this imaging study as follows: My impression: No acute fractures or findings. Discharge Plan Discharge Patient Disposition: Home Clinical Impression: Laceration Condition: Stable Prescriptions: New cephalexin 500 mg capsule 500 mg PO Q6H 4 Days Qty: 16 RF: 0 No Action [place] 5-325 mg tablet 1 tab PO Q6H PRN (Reason: pain) Qty: 28 RF: 0 buspirone 5 mg Tablet 5 mg PO TID RF: 0 citalopram [Celexa] 20 mg Tablet 20 mg PO DAILY RF: 0 albuterol sulfate 90 mcg/actuation Hfa Aerosol Inhaler 1 inh INHALATION QID PRN (Reason: Shortness Of Breath Or Wheezing) RF: 0 Discharge Orders: Discharge Order (Routine); Ordered 07/19/20 Ordered By: Abdiel Lopez Referrals: Jaki Bustamante MD [Primary Care Provider] - Discharge Diet: Regular Discharge Activity: Limit activity as instructed Patient Instructions: Finger Laceration (ED) Activity Restrictions/Additional Instructions: Take full course of antibiotics as prescribed. Keep laceration site clean and dry for the next 48 hours. Then after that you can clean and re-bandage daily. Watch for signs of infection such as redness, warmth, increased tenderness and puslike drainage. If you see the signs of infection return to the ED, urgent care or PCP for reevaluation. call your PCP to schedule a follow-up appointment for reevaluation and suture removal in about 10 days. Continue taking all home meds. Follow discharge plans as discussed. You can return to the ED if symptoms worsen. Coding Level of Care Code ED Snuff Container Inspector for Cesia Curiel Exam Comprehensive
[2020-07-19] MEDS: lidocaine 2% INJ 20 mL INJECTION (20:11)
[2020-07-19 20:17] VITALS: RESP 18; TEMP 36.3; O2SAT 96
== END 2020-07-19 20:19 | disposition home or self-care (01) ==
PROVIDERS: Emergency Provider Physician Assistant; PCP Family Medicine
DX: S61.211A Laceration without foreign body of left index finger without damage to nail, initial encounter (principal); W26.0XXA Contact with knife, initial encounter; Z85.41 Personal history of malignant neoplasm of cervix uteri
CPT/HCPCS: 12001; 12345; 73130; 99281; 99283

== ENCOUNTER 2020-10-13 21:30 | Emergency (ER) | payer MEDICAID, SELFPAY ==
[2020-10-13 21:41] VITALS: BP 109/65; PULSE 79; RESP 18; TEMP 36.9; O2SAT 100; BMI 22.8
--- NOTE | 2020-10-13 22:04 | ED_ITS ---
HPI - Abdominal Pain General: Chief Complaint: Abdominal Pain Stated Complaint: ab pain Time Seen by Provider: 10/13/20 21:51 Source: patient Mode of arrival: ambulatory Limitations: no limitations History of Present Illness: HPI narrative: Pleasant 30-year-old female patient presents to the emergency department with 4-day history of right side abdominal pain. She reports eating makes it worse, reports nausea without vomiting, reports diarrhea yesterday but none today. States attempted to eat fish at approximately 7 PM tonight when pain to the right upper quadrant became so bad, she seek to medical treatment. She reports pain is on and off x4 days but is worsening. She denies fever or chills. She denies urinary frequency or urinary pain. She is currently on her menstrual cycle. She reports history of gallstones with . MD elicited complaint: abdominal pain and flank pain (rt) Pertinent past history: constipation Onset (ago): day(s) (4) Pain Consistency: intermittent Location: RUQ and Other (back) Severity: mild Quality: cramping and aching Radiation: RUQ, R flank and back Exacerbating factors: eating Associated Symptoms: Reports constipation, diarrhea and nausea; Denies chills, GI cramping, dysuria, fever(s), hematemesis and vomiting Related Data: Date of Last Menstrual Period: 10/13/20 Review of Systems General: Reports: 10 or more systems reviewed and unremarkable except in HPI and below Const: Denies: fever(s), chills or diaphoresis Eyes: Denies: blurry vision or eye redness ENMT: Denies: throat pain, dental pain or disequilibrium Card: Denies: chest pain, palpitations, irregular heart rhythm, swelling of feet/ankles or dyspnea on exertion Resp: Denies: dyspnea, productive cough, non-productive cough, wheezing or chest congestion GI: Reports: abdominal pain, nausea, diarrhea and constipation; Denies: vomiting, hematemesis or GI cramping : Denies: difficulty voiding or dysuria Musc: Reports: back pain (rt); Denies: neck pain, joint stiffness, muscle cramps or muscle weakness Skin/Breast: Denies: rash or pruritus Neuro: Denies: headache(s), weakness in extremities or behavioral changes Psych: Denies: anxiety or depression Celio/Lymph: Denies: easy bruising PFSH ED PFSH: Medical History (Updated 10/14/20 @ 00:07 by SONIA Perez) Cervical cancer History of hemorrhoids Hypoglycemic disorder Iron deficiency anemia Migraine Family History Other Bleeding disorder Diabetes Denies family history of Anesthesia complication Social History Smoking and tobacco status: never smoked Alcohol intake: never Female Reproductive History: Date of last menstrual period: 10/13/20 Physical Exam Const: COMMON NORMALS: no acute distress, average body habitus, patient oriented x3, healthy appearing, alert and well nourished EXAM LIMITATIONS: no altered mental status and no physical limitations GENERAL APPEARANCE: cooperative, comfortable, well kempt, well developed and well hydrated; not anxious and not combative NUTRITIONAL APPEARANCE: thin ORIENTATION/CONSCIOUSNESS: Yes awake, Yes oriented to person, Yes oriented to place and Yes oriented to time HENMT: COMMON NORMALS: normocephalic, atraumatic, Normal external nose present and moist oral mucous membranes HEAD & SCALP: normal to inspection, normocephalic and atraumatic FACE & SINUS: normal facial exam and face symmetric NOSE: Normal external nose present MOUTH: Normal oral and palatal mucosa present and tongue normal THROAT: posterior oropharynx normal and uvula midline Eye: COMMON NORMALS: Equal, round and reactive pupils present and EOMs intact bilaterally GENERAL EYE: appearance normal, both eyes and all related structures PUPIL: Yes Equal, round and reactive pupils present Neck/C-Spine: COMMON NORMALS: full ROM, no lymphadenopathy and supple GENERAL: Yes normal visual inspection and Yes trachea midline CERVICAL SPINE: Yes cervical ROM normal Lymph: LYMPHATIC: no lymphadenopathy noted Chest: COMMONS NORMALS: normal inspection of the chest Resp: COMMON NORMALS: normal respiratory effort and clear to auscultation bilaterally AUSCULTATION: clear to auscultation bilaterally Cardio: COMMON NORMALS: regular rate, regular rhythm, S1 normal heart sound present, S2 normal heart sound present and Peripheral pulses 2+ throughout RATE: regular rate RHYTHM: regular rhythm HEART SOUNDS: S1 normal heart sound present and S2 normal heart sound present PERIPHERAL PULSES: Peripheral pulses 2+ throughout GI: COMMON NORMALS: Normal to inspection, nondistended, normoactive bowel sounds present and Soft to palpation INSPECTION: Yes normal to inspection, No abdominal wall ecchymosis, No abdominal distension, No central obesity and No visible herniation AUSCULTATION: Yes Hypoactive bowel sounds present PALPATION: Yes Soft to palpation, Yes Tenderness to palpation present (GI) Details: RUQ and other (Positive Green's), No Abdominal wall crepitus present and No Rebound tenderness present : BLADDER/KIDNEY EXAM: Yes CVA tenderness on the right Back/Pelvis: COMMON NORMALS: thoracic and lumbar spine normal to inspection, no thoracic nor lumbar tenderness, thoraco-lumbar ROM normal and straight leg raise negative bilaterally SACROILIAC JOINTS: Yes SI joints normal Extremity: COMMON NORMALS: normal to inspection and capillary refill normal Neuro: COMMON NORMALS: patient oriented x3 and no focal motor deficits SENSORIUM/ORIENTATION: Yes alert, Yes oriented to person, Yes oriented to place and Yes oriented to time Psych: COMMON NORMALS: mental status grossly normal, Normal thought process present and cooperative APPEARANCE: Yes well kempt ACTIVITY/MOTOR BEHAVIOR: Yes appropriate eye contact THOUGHT PROCESS: Normal thought process present Skin: COMMON NORMALS: no rashes or lesions noted and turgor normal GENERAL SKIN EXAM: no rashes or lesions noted and turgor normal Course Vital Signs: Vital signs: Vital Signs Temperature 98.5 F 10/13/20 21:41 Pulse Rate 67 10/14/20 00:29 Respiratory Rate 18 10/14/20 00:29 Blood Pressure 108/52 10/14/20 00:29 Pulse Oximetry 99 10/14/20 00:29 MDM - Abdominal Pain MDM Narrative: Medical decision making narrative: 30-year-old female patient presents to the emergency department with 4-day history of right-sided abdominal pain. Ultrasound of the gallbladder negative for gallstones, CT abdomen and pelvis did not reveal acute appendicitis or obstructing renal calculus/other acute findings. Patient reports eating does worsen pain, she was placed on Pepcid for gastritis, urinalysis noted to have bacteria, currently on her menstrual cycle, did not wish for cath UA, she was placed on Macrodantin 100 mg p.o. twice daily for 5 days. She remains with chronic iron deficiency anemia. She is advised to refrain from fried, greasy fatty foods to avoid stomach upset. Differential Diagnosis: Differential diagnosis abdominal pain: Likely abdominal pain, acute appendicitis, calculus of kidney and constipation Lab Data: Attestation: I reviewed the patient's lab results. Labs: Lab Results 10/13/20 10/13/20 10/13/20 Range/Units 22:05 22:05 22:05 WBC 5.9 (4.0-10.0) 10^3/ uL RBC 3.52 L (4.1-5.3) 10^6/u L Hgb 10.6 L (11.5-15.3) g/dL Hct 32.0 L (37.0-47.0) % MCV 90.9 (81-99) fL MCH 30.1 (28.0-34.0) pg MCHC 33.1 (30.0-36.0) g/dL RDW 11.8 L (12.1-15.1) % Plt Count 268 (130-400) 10^3/c mm MPV 10.2 (7.4-10.4) fL Neut % (Auto) 49.4 % Lymph % (Auto) 38.5 % Frontier % (Auto) 9.4 % Eos % (Auto) 2.0 % Baso % (Auto) 0.5 % Neut # (Auto) 2.90 (1.8-7.7) 10^3/u L Lymph # (Auto) 2.3 (0.8-4.8) 10^3/u L Frontier # (Auto) 0.6 (0.2-0.9) 10^3/u L Eos # (Auto) 0.1 (0.0-0.8) 10^3/u L Baso # (Auto) 0.0 (0.0-0.1) 10^3/u L Nucleated RBC % (a uto) 0 % Nucleated RBCs # 0.0 /100WBC Sodium 140 (136-145) mmol/L Potassium 3.4 L (3.5-5.1) mmol/L Chloride 104 (98-107) mmol/L Carbon Dioxide 25 (22-29) mmol/L Anion Gap 14.4 (5-19) BUN 9 (6-20) mg/dL Creatinine 0.5 (0.5-0.9) mg/dL GFR Calculation 146.9 H (90-130) mL/min Glucose 95 (65-115) mg/dL Calculated Osmolal ity 288 (285-295) mOsm/k g Calcium 9.2 (8.5-10.5) mg/dL Total Bilirubin 0.3 (0.15-1.2) mg/dL AST 14 (0-32) U/L ALT 8 (0-33) U/L Alkaline Phosphata se 77 (35-105) IU/L Total Protein 7.3 (6.6-8.7) g/dL Albumin 4.4 (3.5-5.2) g/dL Globulin 2.9 (1.3-4.6) g/dL Lipase 30 (13-60) U/L HCG, Qual Negative (Negative) Urine Color (Yellow) Urine Appearance (CLEAR) Urine pH (5-7) Ur Specific Gravit y (1.005-1.030) Urine Protein (Negative) Urine Glucose (UA) (Normal) Urine Ketones (Negative) Urine Blood (Negative) Urine Nitrate (Negative) Urine Bilirubin (Negative) Urine Urobilinogen (Negative) mg/dL Ur Leukocyte Lida ase (Negative) Urine RBC (0-2) /hpf Urine WBC (0-5) /hpf Ur Squamous Epith Cells (0-5) /hpf Amorphous Sediment Urine Bacteria (NONE) /hpf Urine Mucus /hpf 10/13/20 Range/Units 22:13 WBC (4.0-10.0) 10^3/ uL RBC (4.1-5.3) 10^6/u L Hgb (11.5-15.3) g/dL Hct (37.0-47.0) % MCV (81-99) fL MCH (28.0-34.0) pg MCHC (30.0-36.0) g/dL RDW (12.1-15.1) % Plt Count (130-400) 10^3/c mm MPV (7.4-10.4) fL Neut % (Auto) % Lymph % (Auto) % Frontier % (Auto) % Eos % (Auto) % Baso % (Auto) % Neut # (Auto) (1.8-7.7) 10^3/u L Lymph # (Auto) (0.8-4.8) 10^3/u L Frontier # (Auto) (0.2-0.9) 10^3/u L Eos # (Auto) (0.0-0.8) 10^3/u L Baso # (Auto) (0.0-0.1) 10^3/u L Nucleated RBC % (a uto) % Nucleated RBCs # /100WBC Sodium (136-145) mmol/L Potassium (3.5-5.1) mmol/L Chloride (98-107) mmol/L Carbon Dioxide (22-29) mmol/L Anion Gap (5-19) BUN (6-20) mg/dL Creatinine (0.5-0.9) mg/dL GFR Calculation (90-130) mL/min Glucose (65-115) mg/dL Calculated Osmolal ity (285-295) mOsm/k g Calcium (8.5-10.5) mg/dL Total Bilirubin (0.15-1.2) mg/dL AST (0-32) U/L ALT (0-33) U/L Alkaline Phosphata se (35-105) IU/L Total Protein (6.6-8.7) g/dL Albumin (3.5-5.2) g/dL Globulin (1.3-4.6) g/dL Lipase (13-60) U/L HCG, Qual (Negative) Urine Color Red (Yellow) Urine Appearance Sl cloudy A (CLEAR) Urine pH 5 (5-7) Ur Specific Gravit y 1.026 (1.005-1.030) Urine Protein 2+ H (Negative) Urine Glucose (UA) Norm (Normal) Urine Ketones Negative (Negative) Urine Blood 3+ H (Negative) Urine Nitrate Negative (Negative) Urine Bilirubin 1+ H (Negative) Urine Urobilinogen 4+ H (Negative) mg/dL Ur Leukocyte Ldia ase Trace H (Negative) Urine RBC Too numerous to c nt H (0-2) /hpf Urine WBC 0-4 H (0-5) /hpf Ur Squamous Epith Cells 25-40 H (0-5) /hpf Amorphous Sediment Not Reportable Urine Bacteria 2+ H (NONE) /hpf Urine Mucus 1+ /hpf Imaging Data ^: CT Abd/Pel: Radiologist's impression: [address] [address] [address] Scan Report Signed Patient: Kina Perrin Gibson #: [id number] : 1990Acct#:[id number] Age/Sex: 30 / FADM Date: 10/13/20 Loc: ERRoom/Bed: Attending Dr: Ordering Provider/Ordering MD: Tahmina Alfaro Date of Service: 10/13/20 Procedure(s): CT abdomen pelvis w con* [id number] Accession Number(s): [id number] Report Number: [id number] PROCEDURE INFORMATION: Exam: CT Abdomen And Pelvis With Contrast Exam date and time: 10/13/2020 11:18 PM Age: 30 years old Clinical indication: Abdominal pain; Localized; Prior surgery; Surgery type: Trachelectomy; Patient HX: Right sided abd pain with nausea x 4 days. TECHNIQUE: Imaging protocol: Computed tomography of the abdomen and pelvis with contrast. Radiation optimization: All CT scans at this facility use at least one of these dose optimization techniques: automated exposure control; mA and/or kV adjustment per patient size (includes targeted exams where dose is matched to clinical indication); or iterative reconstruction. Contrast material: OMNI 300; Contrast volume: 75 ml; Contrast route: INTRAVENOUS (IV); COMPARISON: US pelvic with transvaginal 06/14/2014 12:38 AM RADIATION DOSE METRICS: Total DLP (mGy-cm): 285.62 FINDINGS: Liver: Normal. No mass. Gallbladder and bile ducts: Normal. No calcified stones. No ductal dilation. Pancreas: Normal. No ductal dilation. Spleen: Normal. No splenomegaly. Adrenal glands: Normal. No mass. Kidneys and ureters: A tiny calcifications seen within the right kidney compatible with a nonobstructing renal calculus. Stomach and bowel: Unremarkable. No obstruction. No mucosal thickening. Appendix: The appendix is visualized and is normal in configuration. Intraperitoneal space: Unremarkable. No free air. No significant fluid collection. Vasculature: Unremarkable. No abdominal aortic aneurysm. Lymph nodes: Unremarkable. No enlarged lymph nodes. Urinary bladder: Unremarkable as visualized. Reproductive: Unremarkable as visualized. Bones/joints: Unremarkable. No acute fracture. Soft tissues: Unremarkable. CT/CT abdomen pelvis w con* [id number] IMPRESSION: 1. There no acute abdominal findings. 2. Tiny nonobstructing right renal calculus Radiation Dose CTDIVOL = (mGy): DLP = 285.62 (mGy-cm) Dictated By:Bruce Zuñiga MD Signed By:Yogesh,Bruce MDSigned Date/Time:10/13/20 7244 US: Radiologist's impression: [address] [address] Ultrasound Report Signed Patient: Kina Perrin Unit #: [id number] : 1990 Age/Sex: 30 / F ADM Date: 10/13/20 Loc: ER Room/Bed: Attending Dr: Ordering Provider/Ordering MD: Tahmina Alfaro Date of Service: 10/13/20 Procedure(s): US abdomen limited [id number] Accession Number(s): [id number] Report Number: [id number] PROCEDURE INFORMATION: Exam: US Abdomen, Limited; Right Upper Quadrant Exam date and time: 10/13/2020 10:43 PM Age: 30 years old Clinical indication: Abdominal pain; Acute; Additional info: Ruq - ruq pain/rt flank pain TECHNIQUE: Imaging protocol: US abdomen. Real time ultrasound with image documentation. Limited exam focused on the right upper quadrant. COMPARISON: CR Abdomen 2 views [id number] 09/14/2014 4:26 PM FINDINGS: Liver: Normal. No masses. Gallbladder: Normal. No gallstones. There is no gallbladder wall thickening. Common bile duct: Normal. No stones. No dilation. Pancreas: Visualized pancreas is unremarkable. Right kidney: Normal. No mass. No hydronephrosis. US/US abdomen limited [id number] IMPRESSION: No acute findings. Dictated By: Bruce Zuñiga MD Signed By: Bruce Zuñiga MD Signed Date/Time: 10/13/202306 DD/ 05 Discharge Plan Discharge Patient Disposition: Home Clinical Impression: Abdominal pain Qualifiers: Abdominal location: right upper quadrant Qualified Code(s): R10.11 - Right upper quadrant pain UTI (urinary tract infection) Qualifiers: Urinary tract infection type: acute cystitis Hematuria presence: with hematuria Qualified Code(s): N30.01 - Acute cystitis with hematuria Gastritis Qualifiers: Gastritis type: unspecified gastritis Chronicity: acute Gastritis bleeding: without bleeding Qualified Code(s): K29.00 - Acute gastritis without bleeding Condition: Stable Prescriptions: New Pepcid 20 mg tablet 20 mg PO BID Qty: 20 RF: 0 Macrobid 100 mg capsule 100 mg PO BID 5 Days Qty: 10 RF: 0 No Action [place] 5-325 mg tablet 1 tab PO Q6H PRN (Reason: pain) Qty: 28 RF: 0 buspirone 5 mg Tablet 5 mg PO TID RF: 0 citalopram [Celexa] 20 mg Tablet 20 mg PO DAILY RF: 0 albuterol sulfate 90 mcg/actuation Hfa Aerosol Inhaler 1 inh INHALATION QID PRN (Reason: Shortness Of Breath Or Wheezing) RF: 0 Discharge Orders: Discharge ED (Routine); Ordered 10/14/20 Ordered By: Tahmina Alfaro Referrals: Jaki Bustamante MD [Primary Care Provider] - Discharge Activity: Resume usual activity Patient Instructions: Gastritis (ED), Urinary Tract Infection in Women (ED), Abdominal Pain (ED) Activity Restrictions/Additional Instructions: Take Pepcid 20 mg twice daily on empty stomach prior to meals, take 20 minutes prior to meal to ensure absorption Take Macrodantin, antibiotic until all gone, even if better Follow-up with your primary care physician in 7 to 10 days if not improved Avoid fried greasy fatty foods as this can cause gastric upset and abdominal p ain. Return to the emergency department if you develop worsening concerning symptoms Coding Level of Care Code ED Supervisor [employer] for Cesia Fwnaomi Exam Comprehensive
[2020-10-13 22:15] LABS: Basophils % 0.5 %; Eosinophils # 0.1 10^3/uL (0.0-0.8); Hemoglobin 10.6 g/dL (11.5-15.3); Lymphocytes # 2.3 10^3/uL (0.8-4.8); Lymphocytes % 38.5 %; Mean Corpuscular HGB Conc 33.1 g/dL (30.0-36.0); Mean Corpuscular Hemoglobin 30.1 pg (28.0-34.0); Mean Corpuscular Volume 90.9 fL (81-99); Mean Platelet Volume 10.2 fL (7.4-10.4); Monocytes # 0.6 10^3/uL (0.2-0.9); Monocytes % 9.4 %; Neutrophils % 49.4 %; Nucleated Red Blood Cells % 0 %; Platelet Count 268 10^3/cmm (130-400); Red Blood Count 3.52 10^6/uL (4.1-5.3); Red Cell Distribution Width 11.8 % (12.1-15.1); White Blood Count 5.9 10^3/uL (4.0-10.0)
[2020-10-13 22:29] LABS: Urine Color Red (Yellow); pH Urine 5 (5-7)
[2020-10-13 22:30] LABS: Add Urine Microscopic? YES; Bilirubin Urine 1+ (Negative); Blood Urine 3+ (Negative); Glucose Urine UA Norm (Normal); Ketones Urine Negative (Negative); Leukocyte Esterase Urine Trace (Negative); Nitrate Urine Negative (Negative); Protein Urine 2+ (Negative); Specific Gravity, Urine 1.026 (1.005-1.030); Urobilinogen Urine 4+ mg/dL (Negative)
[2020-10-13 22:32] LABS: HCG, Serum Qual Negative (Negative)
[2020-10-13 22:36] LABS: Alanine Aminotransferase 8 U/L (0-33); Albumin Level 4.4 g/dL (3.5-5.2); Alkaline Phosphatase 77 IU/L (35-105); Aspartate Amino Transferase 14 U/L (0-32); Blood Urea Nitrogen 9 mg/dL (6-20); Calcium 9.2 mg/dL (8.5-10.5); Carbon Dioxide 25 mmol/L (22-29); Chloride 104 mmol/L (98-107); Globulin 2.9 g/dL (1.3-4.6); Glomerular Filtration Rate 146.9 mL/min (90-130); Glucose 95 mg/dL (65-115); Lipase 30 U/L (13-60); Osmolality Calculated 288 mOsm/kg (285-295); Sodium 140 mmol/L (136-145); Total Bilirubin 0.3 mg/dL (0.15-1.2); Total Protein 7.3 g/dL (6.6-8.7)
[2020-10-13 22:37] LABS: RBC Urine TOO NUMEROUS TO CNT /hpf (0-2); Squamous Epithelial Cell Urine 25-40 /hpf (0-5); WBC Urine 0-4 /hpf (0-5)
[2020-10-13 22:38] LABS: Add Urine Culture? No; Bacteria Urine 2+ /hpf; Mucus Urine 1+ /hpf
[2020-10-13 22:39] LABS: Anion Gap 14.4 (5-19); Potassium 3.4 mmol/L (3.5-5.1)
--- NOTE | 2020-10-13 23:17 | CTR_ITS ---
PROCEDURE INFORMATION: Exam: CT Abdomen And Pelvis With Contrast Exam date and time: 10/13/2020 11:18 PM Age: 30 years old Clinical indication: Abdominal pain; Localized; Prior surgery; Surgery type: Trachelectomy; Patient HX: Right sided abd pain with nausea x 4 days. TECHNIQUE: Imaging protocol: Computed tomography of the abdomen and pelvis with contrast. Radiation optimization: All CT scans at this facility use at least one of these dose optimization techniques: automated exposure control; mA and/or kV adjustment per patient size (includes targeted exams where dose is matched to clinical indication); or iterative reconstruction. Contrast material: OMNI 300; Contrast volume: 75 ml; Contrast route: INTRAVENOUS (IV); COMPARISON: US pelvic with transvaginal 06/14/2014 12:38 AM RADIATION DOSE METRICS: Total DLP (mGy-cm): 285.62 FINDINGS: Liver: Normal. No mass. Gallbladder and bile ducts: Normal. No calcified stones. No ductal dilation. Pancreas: Normal. No ductal dilation. Spleen: Normal. No splenomegaly. Adrenal glands: Normal. No mass. Kidneys and ureters: A tiny calcifications seen within the right kidney compatible with a nonobstructing renal calculus. Stomach and bowel: Unremarkable. No obstruction. No mucosal thickening. Appendix: The appendix is visualized and is normal in configuration. Intraperitoneal space: Unremarkable. No free air. No significant fluid collection. Vasculature: Unremarkable. No abdominal aortic aneurysm. Lymph nodes: Unremarkable. No enlarged lymph nodes. Urinary bladder: Unremarkable as visualized. Reproductive: Unremarkable as visualized. Bones/joints: Unremarkable. No acute fracture. Soft tissues: Unremarkable. CT/CT abdomen pelvis w con* [id number] IMPRESSION: 1. There no acute abdominal findings. 2. Tiny nonobstructing right renal calculus Radiation Dose CTDIVOL = (mGy): DLP = 285.62 (mGy-cm)
[2020-10-13] MEDS: ondansetron 4 MG Tablet PO (23:26)
[2020-10-13] MEDS: acetaminophen 500 mg Tablet 1000 MG PO (23:26)
[2020-10-13] MEDS: iohexol 300 mg/mL 100 mL Btl IV (23:37)
[2020-10-14] MEDS: ketorolac 30 mg/mL INJ 15 MG IVP (00:16)
[2020-10-14] MEDS: nitrofurantoin SR (BID) 100 mg Capsule PO (00:19)
[2020-10-14] MEDS: famotidine 20 mg Tablet 40 MG PO (00:20)
[2020-10-14 00:29] VITALS: BP 108/52; PULSE 67; RESP 18; O2SAT 99
== END 2020-10-14 00:29 | disposition home or self-care (01) ==
PROVIDERS: Emergency Provider Nurse Practitioner Family; PCP Family Medicine
DX: N30.01 Acute cystitis with hematuria (principal); K29.00 Acute gastritis without bleeding; Z85.41 Personal history of malignant neoplasm of cervix uteri
CPT/HCPCS: 12345; 74177; 76705; 80053; 81001; 83690; 84703; 85025; 96374; 99283; J1885; Q0162; Q9967

== ENCOUNTER 2020-11-22 23:04 | Emergency (ER) | payer MEDICAID, SELFPAY ==
[2020-11-22 23:09] VITALS: BP 124/76; PULSE 75; RESP 18; TEMP 36.7; O2SAT 98; BMI 21.9
[2020-11-22 23:18] VITALS: BP 124/76; PULSE 76; RESP 18; O2SAT 100
--- NOTE | 2020-11-22 23:19 | W.ED.EAR ---
HPI - Ear Problem General: Chief complaint: Ear Stated complaint: EAR PAIN/DIZZINESS/NUMBNESS IN R SIDE OF FACE Time Seen by Provider: 11/22/20 23:09 Source: patient and RN notes reviewed Limitations: no limitations History of Present Illness: HPI Narrative: This patient presents to the emergency department complaint of left ear pain and headache. Patient states this has been going on for few days now. Patient also states she has a history of anxiety. She notes over the past couple days with his pain that she seems to have a little bit of a stutter in the beginning. Patient does not appear to be acutely sick and has a normal exam. When asking multiple random questions the patient speaks clearly does not have any significant issues. With speaking. Patient takes BuSpar and other medication she states she has a long history of anxiety and PTSD. Patient is also requesting a work note. This patient does not appear to be acutely sick. MD Complaint: ear pain Location: left ear Associated symptoms: Denies fever(s), headache(s) or neck pain Review of Systems General: Reports: 10 or more systems reviewed and unremarkable except in HPI and below Const: Denies: fever(s) Eyes: Denies: change in vision or blurry vision ENMT: Denies: throat pain, hoarseness or mouth pain Card: Denies: chest pain, palpitations, irregular heart rhythm, edema, swelling of feet/ankles or lightheadedness Resp: Denies: dyspnea, productive cough, non-productive cough, wheezing or pain on inspiration GI: Denies: abdominal pain, nausea or vomiting : Denies: flank pain, difficulty voiding, dysuria, urinary frequency, urinary urgency or urinary hesitancy Musc: Denies: neck pain Skin/Breast: Denies: rash, pruritus, erythema or skin tenderness Neuro: Denies: headache(s) Psych: Denies: anxiety or depression PFSH ED PFSH: Medical History (Updated 11/22/20 @ 23:29 by Robinson Brunson MD) Cervical cancer History of hemorrhoids Hypoglycemic disorder Iron deficiency anemia Migraine Family History Other Bleeding disorder Diabetes Denies family history of Anesthesia complication Social History Smoking and tobacco status: never smoked Alcohol intake: never Female Reproductive History: Date of last menstrual period: 11/15/20 Physical Exam Const: COMMON NORMALS: no acute distress, average body habitus, patient oriented x3, no limitations, healthy appearing, alert and well nourished HENMT: COMMON NORMALS: normocephalic, atraumatic, external ears normal, EAC's normal, TM's normal bilaterally, Normal external nose present and Normal nasal mucous membranes and turbinates present HEAD & SCALP: normocephalic and atraumatic NOSE: Normal external nose present and Normal nasal mucous membranes and turbinates present EXTERNAL EAR: Yes external ears normal EXTERNAL AUDITORY CANAL: EAC's normal TYMPANIC MEMBRANE: TM's normal bilaterally Neck/C-Spine: COMMON NORMALS: full ROM, no lymphadenopathy, supple, no meningeal signs, no JVD, Thyroid normal and No carotid bruits THYROID: Thyroid normal Chest: COMMONS NORMALS: normal inspection of the chest, normal palpation of entire chest wall, normal inspection of the breasts and normal palpation of the breasts Breast/axilla inspection: Yes normal inspection of the breasts BREAST/AXILLA PALPATION: Yes normal palpation of the breasts Resp: COMMON NORMALS: normal respiratory effort, No retractions, No use of accessory muscles, clear to auscultation bilaterally and percussion normal AUSCULTATION: clear to auscultation bilaterally PERCUSSION: percussion normal Cardio: COMMON NORMALS: no JVD, regular rate, regular rhythm, S1 normal heart sound present, S2 normal heart sound present, No gallops present (Cardio), No clicks present (Cardio), No murmurs present (Cardio), No rub (Cardio) and Peripheral pulses 2+ throughout RATE: regular rate RHYTHM: regular rhythm HEART SOUNDS: S1 normal heart sound present and S2 normal heart sound present PERIPHERAL PULSES: Peripheral pulses 2+ throughout GI: COMMON NORMALS: Normal to inspection, nondistended, normoactive bowel sounds present, Soft to palpation, non-tender, No hepatosplenomegaly present, no masses and no bruits PALPATION: Yes Soft to palpation and Yes No hepatosplenomegaly present : COMMON NORMALS: Yes no CVA tenderness, Yes normal external appearance, Yes normal appearance of the vagina, Yes normal appearance of the cervix, Yes normal bimanual exam, Yes No adnexal tenderness and Yes no masses BLADDER/KIDNEY EXAM: Yes no CVA tenderness BIMANUAL EXAM - VAGINA & UTERUS: Yes normal bimanual exam Back/Pelvis: COMMON NORMALS: no CVA tenderness, thoracic and lumbar spine normal to inspection, no thoracic nor lumbar tenderness, thoraco-lumbar ROM normal and straight leg raise negative bilaterally Extremity: COMMON NORMALS: normal to inspection, full ROM, capillary refill normal, no joint enlargement, no clubbing, cyanosis or edema, no calf tenderness and no pedal edema Neuro: COMMON NORMALS: patient oriented x3 SENSORIUM/ORIENTATION: Yes alert MENINGEAL SIGNS: Yes no meningeal signs Course Reevaluation(s): Reevaluation #1: Negative evaluation in the emergency department. I did discuss at length with patient about concerns of medications that she takes. Advised that she needs to follow-up with her primary care physician to discuss her medications her dosages of medications and any alternatives. I did offer the patient CT scan of the head but she declines. Patient recently had a CT scan of her head approximately 4 to 5 months ago states it was negative for any acute findings. Patient requests work note. Patient will be given a injection of Toradol and Benadryl to help with headache. Patient will be discharged home per her request Time: 23:27 Vital Signs: Vital signs: Vital Signs Temperature 98.0 F 11/22/20 23:09 Pulse Rate 76 11/22/20 23:18 Respiratory Rate 18 11/22/20 23:18 Blood Pressure 124/76 11/22/20 23:18 Pulse Oximetry 100 11/22/20 23:18 Discharge Plan Discharge Patient Disposition: Home Clinical Impression: Headache, Ear pain, Nervously anxious Condition: Stable Prescriptions: New diclofenac sodium 75 mg tablet,delayed release (DR/EC) 75 mg PO BID PRN (Reason: pain) Qty: 20 RF: 0 No Action Crawford 5-325 mg tablet 1 tab PO Q6H PRN (Reason: pain) Qty: 28 RF: 0 Pepcid 20 mg tablet 20 mg PO BID Qty: 20 RF: 0 buspirone 5 mg Tablet 5 mg PO TID RF: 0 citalopram [Celexa] 20 mg Tablet 20 mg PO DAILY RF: 0 albuterol sulfate 90 mcg/actuation Hfa Aerosol Inhaler 1 inh INHALATION QID PRN (Reason: Shortness Of Breath Or Wheezing) RF: 0 Discharge Orders: Discharge ED (Routine); Ordered 11/22/20 Ordered By: Robinson Brunson Referrals: Jaki Bustamante MD [Primary Care Provider] - Discharge Diet: Advance as tolerated Discharge Activity: Resume usual activity Patient Instructions: Opioid Safety Activity Restrictions/Additional Instructions: Follow-up with your primary care physician in 2 to 3 days. Discuss alternative medications for anxiety Coding Level of Care Code ED Office Equipment Technician for Cesia Curiel
[2020-11-22] MEDS: ketorolac 30 mg/mL INJ IM (23:34)
[2020-11-22] MEDS: diphenhydrAMINE 25 mg Capsule PO (23:36)
[2020-11-22 23:49] VITALS: BP 110/61; PULSE 81; RESP 16; O2SAT 100
== END 2020-11-22 23:55 | disposition home or self-care (01) ==
PROVIDERS: Emergency Provider Emergency Medicine; PCP Family Medicine
DX: H92.02 Otalgia, left ear (principal); R51.9 Headache, unspecified; F41.9 Anxiety disorder, unspecified; Z85.41 Personal history of malignant neoplasm of cervix uteri
CPT/HCPCS: 96372; 99283; J1885

== ENCOUNTER → 2022-10-07 10:00 | Outpatient (BNVA) | payer MEDICAID, SELFPAY | PROVIDERS: PCP Family Medicine; Visit Provider Obstetrics & Gynecology | DX: Z34.90 Encounter for supervision of normal pregnancy, unspecified, unspecified trimester (principal) | CPT/HCPCS: 81000; 82950; 85025; 87491; 87591; 87661 ==

== ENCOUNTER 2022-10-12 14:25 | Emergency (ER) | payer MEDICAID, SELFPAY ==
[2022-10-12 14:44] VITALS: BP 108/71; PULSE 81; RESP 16; TEMP 36.8; O2SAT 100; BMI 25.7
[2022-10-12 15:00] LABS: Glucose Point of Care 90 mg/dL (70-110)
[2022-10-12 15:48] LABS: Basophils % 0.4 %; Eosinophils % 0.5 %; Hematocrit 27.3 % (37.0-47.0); Hemoglobin 8.2 g/dL (11.5-15.3); Lymphocytes % 12.8 %; Mean Corpuscular Hemoglobin 24.6 pg (28.0-34.0); Mean Platelet Volume 9.6 fL (7.4-10.4); Monocytes # 0.6 10^3/uL (0.2-0.9); Monocytes % 8.1 %; Neutrophils # 6.14 10^3/uL (1.8-7.7); Neutrophils % 77.7 %; Nucleated Red Blood Cells % 0 %; Platelet Count 286 10^3/cmm (130-400); Red Blood Count 3.33 10^6/uL (4.1-5.3); Red Cell Distribution Width 13.3 % (12.1-15.1); White Blood Count 7.9 10^3/uL (4.0-10.0)
--- NOTE | 2022-10-12 16:10 | ED_ITS ---
HPI - General Adult General: Chief complaint: General Medical Stated complaint: BG issues Time Seen by Provider: 10/12/22 15:07 Source: patient Mode of arrival: ambulatory History of Present Illness: 32-year-old female who presents to the emergency room with complaints of elevated blood sugar. She is at 30 weeks gestation she had a +1-hour glucose tolerance test and has not yet had her 3-hour. She has been checking blood sugars at home she says her blood sugars are fluctuated from 180s to 110s she has not been particularly hypoglycemic no fever sweats chills dysuria urgency or frequency. No abdominal pain or discomfort. She had called OB and was advised just follow-up in her for 3-hour done. She still was not feeling well so she presented to the ER. Onset (ago): hour(s) Relieving factors: none Exacerbating factors: none Associated symptoms: Reports malaise; Deny chest pain, confusion, cough, diaphoresis, decreased appetite, dyspnea, fevers/chills, headache(s), nausea, rash, palpitations, seizures, short of breath, syncope, vomiting or weakness Treatments prior to arrival: none Review of Systems Const: Reports: malaise; Denies: fever(s), chills or diaphoresis ENMT: Denies: throat pain, ear or mastoid pain, nasal discharge or nasal congestion Card: Denies: chest pain, palpitations or syncope Resp: Denies: dyspnea, productive cough or non-productive cough GI: Denies: abdominal pain, nausea or vomiting : Denies: flank pain, difficulty voiding, dysuria, urinary frequency or urinary urgency Musc: Denies: neck pain or back pain Skin/Breast: Denies: rash Neuro: Denies: headache(s) or confusion PFS ED PFSH: Medical History Cervical cancer History of hemorrhoids History of hemorrhoids Hypoglycemic disorder Iron deficiency anemia Migraine Surgical History H/O breast biopsy Family History Mother Breast cancer Grandmother Hypertension Hypercholesteremia Grandfather Hypertension Hypercholesteremia Other Diabetes Denies family history of Colon cancer Ovarian cancer Heart disease Uterine cancer Thyroid disease Stroke Female Reproductive History: Date of last menstrual period: 11/15/20 Physical Exam Const: GENERAL APPEARANCE: cooperative and comfortable ORIENTATION/CONSCIOUSNESS: Yes awake, Yes oriented to person, Yes oriented to place and Yes oriented to time HENMT: COMMON NORMALS: normocephalic, atraumatic and hearing grossly normal bilaterally HEAD & SCALP: normocephalic and atraumatic Resp: COMMON NORMALS: normal respiratory effort, No retractions, No use of accessory muscles and clear to auscultation bilaterally AUSCULTATION: clear to auscultation bilaterally Cardio: COMMON NORMALS: regular rate, regular rhythm and No murmurs present (Cardio) RATE: regular rate RHYTHM: regular rhythm GI: COMMON NORMALS: Soft to palpation and No hepatosplenomegaly present AUSCULTATION: Yes normoactive bowel sounds PALPATION: Yes Soft to palpation, No Tenderness to palpation present (GI), No Guarding due to palpation present (GI) and Yes No hepatosplenomegaly present Extremity: COMMON NORMALS: normal to inspection, capillary refill normal, no clubbing, cyanosis or edema, no calf tenderness and no pedal edema Neuro: SENSORIUM/ORIENTATION: Yes oriented to person, Yes oriented to place and Yes oriented to time Skin: COMMON NORMALS: no rashes or lesions noted GENERAL SKIN EXAM: no rashes or lesions noted Course Vital Signs: Vital signs: Vital Signs Temperature 98.3 F 10/12/22 14:44 Pulse Rate 81 10/12/22 14:44 Respiratory Rate 16 10/12/22 14:44 Blood Pressure 108/71 10/12/22 14:44 Pulse Oximetry 100 10/12/22 14:44 Oxygen Delivery Me thod 10/12/22 14:44 [facility] [place] - General Adult Medical Decision Making Labs imaging reviewed. Discussed history patient is moderately anemic. Her blood sugars well controlled in the 80s she does need to get her 3-hour glucose tolerance test would not recommend instituting any treatment at this time. Medical Records I reviewed the patient's medical records. Lab Data I reviewed the patient's lab results. 10/12/22 15:24 10/12/22 15:24 Laboratory Results WBC 7.9 10^3/uL (4.0-10.0) 10/12/22 15:24 RBC 3.33 10^6/uL (4.1-5.3) L 10/12/22 15: Hgb 8.2 g/dL (11.5-15.3) L 10/12/22 15: Hct 27.3 % (37.0-47.0) L 10/12/22 15: MCV 82.0 fl (81-99) 10/12/22 15: MCH 24.6 pg (28.0-34.0) L 10/12/22: MCHC 30.0 g/dL (30.0-36.0) 10/12/22 15: RDW 13.3 % (12.1-15.1) 10/12/22: Plt Count 286 10^3/cmm (130-400) 10/12/22: MPV 9.6 fL (7.4-10.4) 10/12/22: Neut % (Auto) 77.7 % 10/12/22: Lymph % (Auto) 12.8 % 10/12/22: [place] % (Auto) 8.1 % 10/12/22: Eos % (Auto) 0.5 % 10/12/22: Baso % (Auto) 0.4 % 10/12/22: Neut # (Auto) 6.14 10^3/uL (1.8-7.7) 10/12/22: Lymph # (Auto) 1.0 10^3/uL (0.8-4.8) 10/12/22: [place] # (Auto) 0.6 10^3/uL (0.2-0.9) 10/12/22: Eos # (Auto) 0.0 10^3/uL (0.0-0.8) 10/12/22: Baso # (Auto) 0.0 10^3/uL (0.0-0.1) 10/12/22: Nucleated RBC % (auto) 0 % 10/12/22 Nucleated RBCs # 0.0 /100WBC 10/12/22 15: Sodium 136 mmol/L (136-145) 10/12/22 15: Potassium 3.9 mmol/L (3.5-5.1) 10/12/22 15:24 Chloride 103 mmol/L (98-107) 10/12/22 15:24 Carbon Dioxide 21 mmol/L (22-29) L 10/12/22 15:24 Anion Gap 15.9 (5-19) 10/12/22 15:24 BUN 6 mg/dL (6-20) 10/12/22 15:24 Creatinine 0.3 mg/dL (0.5-0.9) L 10/12/22 15:24 GFR Calculation 261.2 mL/min (90-130) H 10/12/22 15:24 Glucose 86 mg/dL (65-115) 10/12/22 15:24 POC Glucose 90 mg/dL (70-110) 10/12/22 14:56 Calculated Osmolality 279 mOsm/kg (285-295) L 10/12/22 15:24 Calcium 9.2 mg/dL (8.5-10.5) 10/12/22 15:24 Urine Color Straw (Yellow) 10/12/22 15:53 Urine Appearance Clear (CLEAR) 10/12/22 15:53 Urine pH 7 (5-7) 10/12/22 15:53 Ur Specific [place] 1.005 (1.005-1.030) 10/12/22 15:53 Urine Protein Neg (Negative) 10/12/22 15:53 Urine Glucose (UA) Norm (Normal) 10/12/22 15:53 Urine Ketones Negative (Negative) 10/12/22 15:53 Urine Blood Neg (Negative) 10/12/22 15:53 Urine Nitrate Negative (Negative) 10/12/22 15:53 Urine Bilirubin Neg (Negative) 10/12/22 15:53 Urine Urobilinogen Norm mg/dL (Negative) 10/12/22 15:53 Ur Leukocyte Esterase Negative (Negative) 10/12/22 15:53 Discharge Plan Discharge Patient Disposition: Home Clinical Impression: Elevated glucose, 29 to 30 weeks gestation of , Anemia Condition: Stable Prescriptions: No Action prenat.vits,canelo,bay-yqgh-eiimr Tablet 1 tab PO DAILY ferrous sulfate 325 mg (65 mg iron) tablet 325 mg PO DAILY fluticasone propionate 50 mcg/actuation spray,suspension 1 spray intranasal DAILY Rx Instructions: administer into each nostril albuterol sulfate 90 mcg/actuation Hfa Aerosol Inhaler 1 inh INHALATION QID PRN (Reason: Shortness Of Breath Or Wheezing) Discharge Orders: Discharge ED (Routine); Ordered 10/12/22 Ordered By: Gurpreet Bethea Referrals: Cami Duran MD [Primary Care Provider] - Discharge Diet: Usual diet Discharge Activity: Resume usual activity Patient Instructions: Opioid Safety, Pain Management Activity Restrictions/Additional Instructions: You were seen today for questions regarding your blood sugar. Blood sugar on serum exam was normal. You are mildly anemic recommend you follow-up with your primary care hand leather trimmer. Return if you have further problems. Coding Level of Care Code ED Tetryl Blender Operator for Cesia Curiel
[2022-10-12 16:14] LABS: Add Urine Microscopic? NO; Charge for UA Resulting for Rev
[2022-10-12 16:26] LABS: Anion Gap 15.9 (5-19); Blood Urea Nitrogen 6 mg/dL (6-20); Calcium 9.2 mg/dL (8.5-10.5); Carbon Dioxide 21 mmol/L (22-29); Chloride 103 mmol/L (98-107); Glomerular Filtration Rate 261.2 mL/min (90-130); Glucose 86 mg/dL (65-115); Osmolality Calculated 279 mOsm/kg (285-295); Potassium 3.9 mmol/L (3.5-5.1); Sodium 136 mmol/L (136-145)
[2022-10-12 16:44] LABS: Bilirubin Urine Neg (Negative); Blood Urine Neg (Negative); Glucose Urine UA Norm (Normal); Ketones Urine Negative (Negative); Leukocyte Esterase Urine Negative (Negative); Nitrate Urine Negative (Negative); Protein Urine Neg (Negative); Specific Gravity, Urine 1.005 (1.005-1.030); Urine Appearance Clear (CLEAR); Urine Color Straw (Yellow); Urobilinogen Urine Norm (Negative); pH Urine 7 (5-7)
== END 2022-10-12 18:07 | disposition home or self-care (01) ==
PROVIDERS: Emergency Provider Family Medicine; PCP Obstetrics & Gynecology
DX: O99.810 Abnormal glucose complicating pregnancy (principal); R73.9 Hyperglycemia, unspecified; Z3A.30 30 weeks gestation of pregnancy; O99.013 Anemia complicating pregnancy, third trimester; D64.9 Anemia, unspecified; Z85.41 Personal history of malignant neoplasm of cervix uteri
CPT/HCPCS: 36416; 80048; 81003; 82962; 85025; 99283

== ENCOUNTER 2022-10-21 15:36 | Outpatient (CLI) | payer MEDICAID, SELFPAY ==
[2022-10-21 15:40] VITALS: BP 122/65; PULSE 92
[2022-10-21 15:43] VITALS: TEMP 36.3
[2022-10-21 15:52] VITALS: RESP 16
[2022-10-21 15:55] VITALS: BP 112/63; PULSE 91
[2022-10-21 16:10] VITALS: BP 116/67; PULSE 86
[2022-10-21 16:20] LABS: Actim Prom Negative
[2022-10-21 16:38] LABS: Basophils % 0.3 %; Eosinophils % 0.4 %; Hematocrit 26.6 % (37.0-47.0); Hemoglobin 7.9 g/dL (11.5-15.3); Lymphocytes # 1.3 10^3/uL (0.8-4.8); Lymphocytes % 12.1 %; Mean Corpuscular HGB Conc 29.7 g/dL (30.0-36.0); Mean Corpuscular Hemoglobin 24.4 pg (28.0-34.0); Mean Corpuscular Volume 82.1 fl (81-99); Mean Platelet Volume 9.7 fL (7.4-10.4); Monocytes % 8.6 %; Neutrophils # 8.55 10^3/uL (1.8-7.7); Neutrophils % 77.8 %; Nucleated Red Blood Cells % 0 %; Platelet Count 339 10^3/cmm (130-400); Red Blood Count 3.24 10^6/uL (4.1-5.3); Red Cell Distribution Width 13.2 % (12.1-15.1)
--- NOTE | 2022-10-21 17:04 | PM.OBTRLD ---
OB L&D Triage Visit Information: Date of evaluation: 10/21/22 Comments/Additional reason(s) for visit: 32-year-old female with LMP 03/14/2022 and LAXMI 12/19/2022 at 31 point 4/7 weeks gestation patient was sent from Dr. Duran office today to labor and delivery for evaluation of rupture of membranes. Patient questions whether or not she has been leaking fluid x10 days. She states she wakes up during the night and her underwear is wet. She admits to good movement and possible Fidel Quiroz contractions for the last 4 to 5 days. Denies any vaginal bleeding, pelvic pain or cramping. Patient states that this is her last that she desires elective hysterectomy, which would satisfy desire for sterilization as well as treatment for heavy menstrual cycles and her history of cervical cancer. ROM testing?negative CBC-WBC 11, Hgb 7.9, platelets 339. Results of external monitoring and ROM testing discussed with patient. Severe anemia discussed with patient, she states that she has had to have a blood transfusion before or after each delivery because her body does not absorb iron. She states that she has history of iron transfusions, and that a special population paraprofessional consult is underway by Dr. Duran office. I advised patient to continue her vitamins daily as directed, with increased fluids. Advised patient to keep her next appointment for further care. Evaluation: Baseline heart rate: 140 monitor accelerations: Present 15x15 Cervical dilation (cm): 0 Laboratory results: Laboratory Tests 10/21/22 10/21/22 10/21/22 16:00 16:17 16:34 WBC 11.0 H RBC 3.24 L Hgb 7.9 L Hct 26.6 L MCV 82.1 MCH 24.4 L MCHC 29.7 L RDW 13.2 Plt Count 339 MPV 9.7 Neut % (Auto) 77.8 Lymph % (Auto) 12.1 Page % (Auto) 8.6 Eos % (Auto) 0.4 Baso % (Auto) 0.3 Neut # (Auto) 8.55 H Lymph # (Auto) 1.3 Page # (Auto) 1.0 H Eos # (Auto) 0.0 Baso # (Auto) 0.0 Nucleated RBC % (a uto) 0 Nucleated RBCs # 0.0 Insulin-like GF I Negative Amorphous Sediment Not Reportable Vital signs: Vital Signs - 24 hr 10/21/22 15:40 10/21/22 15:43 10/21/22 15:55 Temperature 97.3 F L Pulse Rate 92 91 Respiratory Rate Blood Pressure 122/65 112/63 10/21/22 16:10 10/21/22 15:52 10/21/22 15:52 Temperature Pulse Rate 86 Respiratory Rate 16 16 Blood Pressure 116/67 Comments: ROM test?negative Care LAXMI Calculator Estimated Delivery Date Method Current WG Current Estimate 12/19/22 LMP (Certain) 31w 4d Other Estimates 12/21/22 Ultrasound #1 31w 2d Final Diagnosis Final Diagnosis (1) Supervision of other high risk , antepartum: Plan: A. Leakage of fluid?negative for rupture of membranes at 31 point 4/7 weeks gestation P. Discharge patient to home, patient to continue with care as scheduled. Status: Acute Code(s): O09.899 - Supervision of other high risk pregnancies, unspecified trimester (2) Anemia affecting : Status: Acute Code(s): O99.019 - Anemia complicating , unspecified trimester Coding Level of Care Code Acute Code for Chg Fwd Diagnoses Supervision of other high risk , antepartum O09.899 Anemia affecting O99.019
[2022-10-21 17:07] VITALS: BMI 24.7
[2022-10-21 17:08] LABS: Amphetamines Screen Urine Negative (Negative); Barbiturates Screen Urine Negative (Negative); Benzodiazepines Screen Urine Negative (Negative); Cocaine Screen Urine Negative (Negative); Opiate Screen Urine Negative (Negative); PCP Screen Urine Negative (Negative); THC Screen Urine Negative (Negative)
[2022-10-21 17:20] LABS: Add Urine Culture? No; Bilirubin Urine Neg (Negative); Blood Urine Neg (Negative); Glucose Urine UA Norm (Normal); Ketones Urine Negative (Negative); Leukocyte Esterase Urine Negative (Negative); Nitrate Urine Negative (Negative); Protein Urine Neg (Negative); Urine Appearance Clear (CLEAR); Urine Color Yellow (Yellow); Urobilinogen Urine Neg (Negative); WBC Urine RARE /hpf (0-5); pH Urine 6 (5-7)
[2022-10-21 17:52] VITALS: BP 116/67; PULSE 86
== END 2022-10-21 17:53 | disposition home or self-care (01) ==
LOC: OPOB 15:38 → OBGYN 15:38
PROVIDERS: Obstetrics & Gynecology; PCP Obstetrics & Gynecology; Visit Provider Obstetrics & Gynecology
DX: O26.899 Other specified pregnancy related conditions, unspecified trimester (principal); Z3A.00 Weeks of gestation of pregnancy not specified; N89.8 Other specified noninflammatory disorders of vagina
CPT/HCPCS: 12345; 36415; 59025; 80306; 81000; 81001; 82951; 82952; 84112; 85025; 99211

== ENCOUNTER 2022-11-04 14:06 | Outpatient (CLI) | payer MEDICAID, SELFPAY ==
[2022-11-04 14:06] VITALS: BMI 26.9
[2022-11-04 14:24] VITALS: BP 124/71; PULSE 85
[2022-11-04 14:39] VITALS: BP 124/68; PULSE 84
[2022-11-04 14:54] VITALS: BP 121/72; PULSE 80
[2022-11-04 15:09] VITALS: BP 115/67; PULSE 82
--- NOTE | 2022-11-04 15:09 | US_ITS ---
WS: [id number] BIOPHYSICAL PROFILE AND LIMITED OB. HISTORY: marked variability COMPARISON: None available. Presentation: Vertex. Cervix: Not well visualized. Urinary bladder is overly distended. May be shortened. Placenta: Posterior, no previa. Grade: 1 HEART: FHR of 133BPM. measurements: BPD = 8.9 cm = 36w0d; 96 percentile HC = 31.7 cm = 35w5d; 68th percentile AC = 31.8 cm = 35w5d; 96 percentile FL = 7.0 cm = 36w0d; 92nd percentile VALERIE: 19.0 centimeters; single deep vertical pocket 7.6 cm. EFW: 2772g; greater than 90th percentile AGA by ultrasound: 35w6d LAXMI by ultrasound: 12/03/2022 Biophysical profile: Parameters are as follows: Breathin Movement: 2 Tone: 2 Fluid volume: 2 US/US OB lmt w/ BPP wo NST IMPRESSION: 1. Biophysical profile score: 8/8. 2. Single intrauterine gestation of 35w6d with an LAXMI of 12/03/2022. 3. BPD and abdominal circumference are measuring greater than the 90th percenti le. There is no first trimester ultrasound to confirm dates and growth. This ma y be a large for gestational age fetus or the provided LMP may not be accurate. 4. Normal amniotic fluid. 5. Cervical insufficiency is not excluded. The cervix appears shortened and poo rly visualized.
[2022-11-04 15:24] VITALS: BP 124/70; PULSE 85
--- NOTE | 2022-11-04 15:48 | PM.OBTRLD ---
OB L&D Triage Visit Information: Date of evaluation: 11/04/22 Comments/Additional reason(s) for visit: 32yo female at 33.4wk IUP, LAXMI 12/19/22. in with c/o Decreased FM x 1 wk. Admits to good FM while on monitor. EFM- Cat 1 with occ ctx. No LOF or vagina bleeding. NST- Reactive BPP-8/10 with VALERIE-18.99cm, EFW 6#1 (2772gm) measuring 36.4wks.. Discussed NST/BPP with pt and reassuring factors. Pt c/o Fe def. anemia and is being scheduled for Fe infusion, advised to call office for date of appointment. Evaluation: monitor accelerations: Present 15x15 Cervical dilation (cm): 0 Vital signs: Vital Signs - 24 hr 11/04/22 14:24 11/04/22 14:39 11/04/22 14:54 Pulse Rate 85 84 80 Blood Pressure 124/71 124/68 121/72 11/04/22 15:09 11/04/22 15:24 Pulse Rate 82 85 Blood Pressure 115/67 124/70 Care LAXMI Calculator Estimated Delivery Date Method Current WG Current Estimate 12/19/22 LMP (Certain) 33w 4d Other Estimates 12/21/22 Ultrasound #1 33w 2d Final Diagnosis Final Diagnosis (1) Supervision of other high risk , antepartum: Plan: A. 1. 33.4 wk IUP with decreased FM-resolved P. 1. NST/BPP 2. DC to home, pt to f/u at office as scheduled. Status: Acute Code(s): O09.899 - Supervision of other high risk pregnancies, unspecified trimester Coding Level of Care Code Acute Code for Chg Fwd Diagnoses Supervision of other high risk , antepartum O09.899
== END 2022-11-04 16:13 | disposition home or self-care (01) ==
LOC: OPOB 14:11 → OBGYN 14:14
PROVIDERS: PCP Obstetrics & Gynecology; Visit Provider Obstetrics & Gynecology
DX: O09.899 Supervision of other high risk pregnancies, unspecified trimester (principal); Z3A.33 33 weeks gestation of pregnancy
CPT/HCPCS: 12345; 59025; 76815; 76819; 84315; 99211

== ENCOUNTER 2022-11-05 21:40 | Outpatient (CLI) | payer MEDICAID, SELFPAY ==
[2022-11-05 22:20] VITALS: RESP 15
[2022-11-05 22:26] VITALS: BMI 26.9
[2022-11-05 22:35] LABS: Add Urine Microscopic? NO; Charge for UA Resulting for Rev
[2022-11-05 22:41] VITALS: BP 111/67; PULSE 71; RESP 16; TEMP 36.8
[2022-11-05 22:44] LABS: Bilirubin Urine Neg (Negative); Blood Urine Neg (Negative); Glucose Urine UA Norm (Normal); Ketones Urine 1+ (Negative); Leukocyte Esterase Urine Negative (Negative); Nitrate Urine Negative (Negative); Protein Urine Neg (Negative); Urine Appearance Clear (CLEAR); Urine Color Yellow (Yellow); Urobilinogen Urine Norm (Negative); pH Urine 6 (5-7)
[2022-11-05 22:45] LABS: Basophils % 0.3 %; Eosinophils % 0.3 %; Hematocrit 27.1 % (37.0-47.0); Hemoglobin 8.1 g/dL (11.5-15.3); Lymphocytes # 1.7 10^3/uL (0.8-4.8); Lymphocytes % 14.7 %; Mean Corpuscular HGB Conc 29.9 g/dL (30.0-36.0); Mean Corpuscular Hemoglobin 23.4 pg (28.0-34.0); Mean Corpuscular Volume 78.3 fl (81-99); Mean Platelet Volume 9.4 fL (7.4-10.4); Monocytes # 0.7 10^3/uL (0.2-0.9); Monocytes % 6.1 %; Neutrophils # 8.76 10^3/uL (1.8-7.7); Neutrophils % 77.8 %; Nucleated Red Blood Cells % 0 %; Platelet Count 334 10^3/cmm (130-400); Red Blood Count 3.46 10^6/uL (4.1-5.3); Red Cell Distribution Width 13.7 % (12.1-15.1); White Blood Count 11.3 10^3/uL (4.0-10.0)
[2022-11-05 22:46] VITALS: BP 115/68; PULSE 71
[2022-11-05] MEDS: ondansetron 2 mg/ML SDV 2 mL 4 MG IVP (22:47)
[2022-11-05 22:57] LABS: Urine Creatinine 152 mg/dL (28-217); Urine Protein Random 9 mg/dL
[2022-11-05 23:02] LABS: UPRO/UCREAT Ratio 0.06 mg/mg CR
[2022-11-05 23:05] VITALS: BP 101/57; PULSE 70
[2022-11-05 23:06] LABS: Alanine Aminotransferase < 5 U/L (0-33); Albumin Level 3.8 g/dL (3.5-5.2); Alkaline Phosphatase 139 U/L (35-105); Anion Gap 14.6 (5-19); Aspartate Amino Transferase 11 U/L (0-32); Blood Urea Nitrogen 6 mg/dL (6-20); Calcium 9.3 mg/dL (8.5-10.5); Carbon Dioxide 23 mmol/L (22-29); Chloride 101 mmol/L (98-107); Globulin 3.3 g/dL (1.3-4.6); Glomerular Filtration Rate 144.9 mL/min (90-130); Glucose 84 mg/dL (65-115); Osmolality Calculated 277 mOsm/kg (285-295); Potassium 3.6 mmol/L (3.5-5.1); Sodium 135 mmol/L (136-145); Total Bilirubin 0.4 mg/dL (0.15-1.2); Total Protein 7.1 g/dL (6.6-8.7); Uric Acid 2.8 mg/dL (2.4-5.7)
[2022-11-05 23:24] VITALS: BP 102/62; PULSE 68
[2022-11-05 23:44] VITALS: BP 100/60; PULSE 70
[2022-11-05] MEDS: alum-mag-hydroxide-sime 30 mL UDC PO (23:53)
[2022-11-05] MEDS: dextrose 5%-lactated ringers 1,000 ML 999 ML IV (23:53)
[2022-11-06 00:04] VITALS: BP 110/51; PULSE 80
[2022-11-06 00:24] VITALS: BP 104/61; PULSE 67
[2022-11-06 00:44] VITALS: BP 106/59; PULSE 81
== END 2022-11-06 01:05 | disposition home or self-care (01) ==
LOC: OPOB 22:15 → OBGYN 22:16
PROVIDERS: PCP Obstetrics & Gynecology; Visit Provider Obstetrics & Gynecology
DX: O21.9 Vomiting of pregnancy, unspecified (principal); Z3A.00 Weeks of gestation of pregnancy not specified; R12 Heartburn
CPT/HCPCS: 36415; 59025; 80053; 81003; 82570; 84156; 84550; 85025; 96374; 99211; J2405; J7121

== ENCOUNTER 2022-11-10 18:25 | Outpatient (CLI) | payer MEDICAID, SELFPAY ==
[2022-11-05 22:41] VITALS: RESP 16; TEMP 36.8
[2022-11-10 18:41] VITALS: BP 130/71; PULSE 81
[2022-11-10 19:07] LABS: Bilirubin Urine Neg (Negative); Blood Urine Neg (Negative); Glucose Urine UA Norm (Normal); Ketones Urine Negative (Negative); Leukocyte Esterase Urine Negative (Negative); Nitrate Urine Negative (Negative); Protein Urine Neg (Negative); Specific Gravity, Urine 1.005 (1.005-1.030); Urine Appearance Clear (CLEAR); Urine Color Colorless (Yellow); Urobilinogen Urine Neg (Negative); pH Urine 7 (5-7)
[2022-11-10 19:20] LABS: Add Urine Culture? No; RBC Urine 0-4 /hpf (0-2); Squamous Epithelial Cell Urine 0-4 /hpf (0-5); WBC Urine 0-4 /hpf (0-5)
[2022-11-10 19:56] VITALS: BP 129/66; PULSE 86
[2022-11-10 19:59] VITALS: BP 129/66; PULSE 86; RESP 18
== END 2022-11-10 20:00 | disposition home or self-care (01) ==
LOC: OPOB 18:30 → OBGYN 18:31
PROVIDERS: PCP Obstetrics & Gynecology; Visit Provider Obstetrics & Gynecology
DX: O26.899 Other specified pregnancy related conditions, unspecified trimester (principal); Z3A.00 Weeks of gestation of pregnancy not specified; R10.9 Unspecified abdominal pain
CPT/HCPCS: 59025; 81001; 99211

== ENCOUNTER → 2022-11-18 09:20 | Outpatient (BNVA) | payer MEDICAID, SELFPAY | PROVIDERS: PCP Obstetrics & Gynecology; Visit Provider Obstetrics & Gynecology | DX: O09.899 Supervision of other high risk pregnancies, unspecified trimester (principal) | CPT/HCPCS: 81000; 87081 ==

== ENCOUNTER 2022-11-23 22:16 | Outpatient (CLI) | payer MEDICAID, SELFPAY ==
[2022-11-23 22:20] VITALS: BMI 27.4
[2022-11-23 22:22] VITALS: BP 121/62; PULSE 77; TEMP 36.2
[2022-11-23 22:31] VITALS: RESP 16
[2022-11-23 22:41] LABS: Actim Prom Negative
[2022-11-23 23:25] VITALS: BP 108/62; PULSE 75
[2022-11-23 23:25] LABS: Add Urine Culture? No; Bacteria Urine TRACE /hpf; Bilirubin Urine Neg (Negative); Blood Urine 2+ (Negative); Glucose Urine UA Norm (Normal); Ketones Urine Negative (Negative); Leukocyte Esterase Urine Negative (Negative); Nitrate Urine Negative (Negative); Protein Urine Neg (Negative); RBC Urine 0-4 /hpf (0-2); Specific Gravity, Urine 1.005 (1.005-1.030); Squamous Epithelial Cell Urine 0-4 /hpf (0-5); Urine Appearance Clear (CLEAR); Urine Color Yellow (Yellow); Urobilinogen Urine Norm (Negative); WBC Urine 0-4 /hpf (0-5); pH Urine 7 (5-7)
[2022-11-23 23:40] VITALS: BP 118/68; PULSE 78
[2022-11-23 23:45] VITALS: BP 118/68; PULSE 78; RESP 16; TEMP 36.2
== END 2022-11-23 23:55 | disposition home or self-care (01) ==
LOC: OPOB 22:17 → OBGYN 22:17
PROVIDERS: PCP Obstetrics & Gynecology; Visit Provider Obstetrics & Gynecology
DX: O46.90 Antepartum hemorrhage, unspecified, unspecified trimester (principal); Z3A.00 Weeks of gestation of pregnancy not specified
CPT/HCPCS: 59025; 81001; 84112; 99211

== ENCOUNTER → 2022-11-25 13:58 | Outpatient (BNVA) | payer MEDICAID, SELFPAY | PROVIDERS: PCP Obstetrics & Gynecology; Visit Provider Obstetrics & Gynecology | DX: O09.899 Supervision of other high risk pregnancies, unspecified trimester (principal) | CPT/HCPCS: 81000 ==

== ENCOUNTER 2022-11-29 20:50 | Outpatient (CLI) | payer MEDICAID, SELFPAY ==
[2022-11-29 20:50] VITALS: RESP 16; TEMP 36.9; BMI 27.8
[2022-11-29 21:03] VITALS: BP 117/61; PULSE 80
[2022-11-29 21:22] VITALS: BP 110/67; PULSE 80
[2022-11-29 21:37] VITALS: BP 105/60; PULSE 85
[2022-11-29 21:51] VITALS: BP 109/60; PULSE 84
[2022-11-29 22:00] VITALS: BP 109/60; PULSE 84; RESP 16; TEMP 36.9
== END 2022-11-29 22:10 | disposition home or self-care (01) ==
LOC: OPOB 20:50 → OBGYN 20:51
PROVIDERS: PCP Obstetrics & Gynecology; Visit Provider Obstetrics & Gynecology
DX: O47.9 False labor, unspecified (principal); Z3A.00 Weeks of gestation of pregnancy not specified; R51.9 Headache, unspecified; R60.0 Localized edema
CPT/HCPCS: 59025; 99211

== ENCOUNTER → 2022-12-02 10:49 | Outpatient (BNVA) | payer MEDICAID, SELFPAY | PROVIDERS: PCP Obstetrics & Gynecology; Visit Provider Obstetrics & Gynecology | DX: O09.899 Supervision of other high risk pregnancies, unspecified trimester (principal) | CPT/HCPCS: 81000 ==

== ENCOUNTER → 2022-12-03 14:45 | Outpatient (BNVA) | payer MEDICAID, SELFPAY | PROVIDERS: PCP Obstetrics & Gynecology; Visit Provider Family Medicine | DX: O99.019 Anemia complicating pregnancy, unspecified trimester (principal) | CPT/HCPCS: 82607; 82728; 82746; 83550; 85025 ==

== ENCOUNTER 2022-12-05 12:06 | Outpatient (CLI) | payer MEDICAID, SELFPAY ==
[2022-12-05 12:22] VITALS: BP 108/56; PULSE 80
[2022-12-05 12:34] VITALS: BMI 27.6
[2022-12-05 12:42] VITALS: BP 109/58; PULSE 81
[2022-12-05 12:56] LABS: Basophils % 0.3 %; Eosinophils % 0.3 %; Hematocrit 25.9 % (37.0-47.0); Hemoglobin 7.6 g/dL (11.5-15.3); Lymphocytes # 1.5 10^3/uL (0.8-4.8); Mean Corpuscular HGB Conc 29.3 g/dL (30.0-36.0); Mean Corpuscular Hemoglobin 22.2 pg (28.0-34.0); Mean Corpuscular Volume 75.5 fl (81-99); Mean Platelet Volume 9.4 fL (7.4-10.4); Monocytes # 0.7 10^3/uL (0.2-0.9); Monocytes % 6.4 %; Neutrophils # 8.81 10^3/uL (1.8-7.7); Neutrophils % 78.7 %; Nucleated Red Blood Cells % 0 %; Platelet Count 316 10^3/cmm (130-400); Red Blood Count 3.43 10^6/uL (4.1-5.3); Red Cell Distribution Width 14.8 % (12.1-15.1); White Blood Count 11.2 10^3/uL (4.0-10.0)
[2022-12-05 13:01] LABS: Alanine Aminotransferase < 5 U/L (0-33); Albumin Level 3.8 g/dL (3.5-5.2); Alkaline Phosphatase 134 U/L (35-105); Anion Gap 15.7 (5-19); Aspartate Amino Transferase 12 U/L (0-32); Blood Urea Nitrogen 4 mg/dL (6-20); Calcium 8.7 mg/dL (8.5-10.5); Carbon Dioxide 19 mmol/L (22-29); Chloride 101 mmol/L (98-107); Globulin 3.1 g/dL (1.3-4.6); Glomerular Filtration Rate 187.4 mL/min (90-130); Glucose 95 mg/dL (65-115); Osmolality Calculated 271 mOsm/kg (285-295); Potassium 3.7 mmol/L (3.5-5.1); Sodium 132 mmol/L (136-145); Total Bilirubin 0.5 mg/dL (0.15-1.2); Total Protein 6.9 g/dL (6.6-8.7); Uric Acid 2.9 mg/dL (2.4-5.7)
[2022-12-05 13:08] LABS: Urine Creatinine 36 mg/dL (28-217); Urine Protein Random 4 mg/dL
[2022-12-05 13:10] LABS: UPRO/UCREAT Ratio 0.11 mg/mg CR
[2022-12-05 13:22] VITALS: BP 110/60; PULSE 77
[2022-12-05 13:42] VITALS: BP 103/56; PULSE 78
[2022-12-05] MEDS: dextrose 5%-lactated ringers 1,000 ML 999 ML IV (13:57)
[2022-12-05] MEDS: acetaminophen 500 mg Tablet 1000 MG PO (13:57)
[2022-12-05] MEDS: iron sucrose 200 MG in sodium chloride 0.9% (100 ml) 100 ML 220 MG IV (13:57)
[2022-12-05 15:10] LABS: Add Urine Microscopic? NO; Charge for UA Resulting for Rev
[2022-12-05 15:20] LABS: Bilirubin Urine Neg (Negative); Blood Urine Neg (Negative); Glucose Urine UA Norm (Normal); Ketones Urine Negative (Negative); Leukocyte Esterase Urine Negative (Negative); Nitrate Urine Negative (Negative); Protein Urine Neg (Negative); Specific Gravity, Urine 1.005 (1.005-1.030); Urine Appearance Clear (CLEAR); Urine Color Light yellow (Yellow); Urobilinogen Urine Neg (Negative); pH Urine 7 (5-7)
[2022-12-05 15:45] VITALS: BP 89/53; PULSE 70
== END 2022-12-05 15:50 | disposition home or self-care (01) ==
LOC: OPOB 12:08 → OBGYN 12:11
PROVIDERS: PCP Obstetrics & Gynecology; Visit Provider Obstetrics & Gynecology
DX: O26.899 Other specified pregnancy related conditions, unspecified trimester (principal); Z3A.00 Weeks of gestation of pregnancy not specified; R51.9 Headache, unspecified; R60.0 Localized edema
CPT/HCPCS: 36415; 59025; 80053; 81003; 82570; 84156; 84550; 85025; 99211; J1756; J7121

== ENCOUNTER 2022-12-09 09:47 | Inpatient (IN) | payer MEDICAID, SELFPAY ==
[2022-12-09] VITALS (87 sets, daily range): BP systolic 85–133; BP diastolic 51–78; PULSE 63–103; RESP 18; TEMP 36.4–36.8; O2SAT 100; BMI 25.7
[2022-12-09 10:24] LABS: Basophils # 0.1 10^3/uL (0.0-0.1); Basophils % 0.5 %; Eosinophils # 0.1 10^3/uL (0.0-0.8); Eosinophils % 0.6 %; Hematocrit 29.4 % (37.0-47.0); Hemoglobin 7.6 g/dL (11.5-15.3); Lymphocytes # 1.2 10^3/uL (0.8-4.8); Lymphocytes % 12.3 %; Mean Corpuscular HGB Conc 25.9 g/dL (30.0-36.0); Mean Corpuscular Hemoglobin 22.6 pg (28.0-34.0); Mean Corpuscular Volume 87.2 fl (81-99); Mean Platelet Volume 9.7 fL (7.4-10.4); Monocytes # 0.8 10^3/uL (0.2-0.9); Monocytes % 7.9 %; Neutrophils % 77.2 %; Nucleated Red Blood Cells % 0 %; Platelet Count 226 10^3/cmm (130-400); Red Blood Count 3.37 10^6/uL (4.1-5.3); Red Cell Distribution Width 15.9 % (12.1-15.1)
[2022-12-09] MEDS: acetaminophen 325 mg Tablet 650 MG PO ×2 (10:37→18:40)
[2022-12-09] MEDS: oxytocin 30 UNIT/500 ML BAG IV (11:40)
[2022-12-09] MEDS: dextrose 5%-lactated ringers 1,000 ML 125 ML IV ×2 (11:40→21:46)
--- NOTE | 2022-12-09 12:19 | PM.OBGYHP ---
Providers/Chief Complaint Admitting Physician: Chantelle Castillo DO Primary CUSTOMER PROGRAM MANAGER: Giovanna Duran MD Primary Care Provider: Cami Duran MD Chief Complaint: Possible ROM HPI CUSTOMER PROGRAM MANAGER History of Present Illness Kina Perrin is a 32 year old female at 38.4 wk IUP, LAXMI 12/19/22 admitted to after c/o SROM at 0800 this am, pt of Dr. Duran. Pt denies vaginal bleeding or decreased FM. Pt. course with severe anemia, required blood transfusions with both pregnancies in the past before and after delivery. She has been referred for Fe tranfusion but has not received yet. Initial EFM- Cat 1 with no contractions noted. Cx- 1cm//-4, Vtx confirmed by bedside US/nursing staff. Gross clear fluid noted. Labor and Augmentation with Pitocin discussed, pt states she knows how Pitocin works she had it with last 2 deliveries. Present Details : 3 Para: 2 Date of Last Menstrual Period: 03/14/22 Calculated Date of Delivery: 12/19/22 Gestational Age Based on Last Menstrual Period: 38 Labs Blood type OB HPI: A (+) positive Rubella: Immune RPR: Negative GBS: Negative HBsAG: Negative Other Lab Information: see below Review of Systems General: Reports: 10 or more systems reviewed and unremarkable except in HPI and below Narrative: reports fatigue, weakness, shortness of breath, hematochezia no cp, palpitations, syncope, melena Medications/Allergies Home Medications Medication Instructions Recorded Confirmed Last Taken Type fluticasone propionate 50 1 spray intranasal DAILY 10/07/22 12/02/22 Unknown History mcg/actuation nasal spray,suspension prenat.vits,canelo,[id number] 1 tab PO DAILY 10/07/22 12/06/22 11/29/22 History loratadine 10 mg tablet (Claritin) 10 mg PO DAILY 11/18/22 12/02/22 11/29/22 History ferric carboxymaltose (Injectafer) 750 mg (15 mL) IV Q7D 2 doses #30 12/04/22 12/06/22 Unknown Rx mL Allergies Allergy/AdvReac Type Severity Reaction Status Date / Time fentanyl Allergy Severe ADR-Vomitin Verified 12/02/22 09:54 g latex Allergy Intermediate ALGY-Hives Verified 12/02/22 09:54 peach Allergy Intermediate rash Verified 12/02/22 09:54 strawberry Allergy Intermediate rash Verified 12/02/22 09:54 PFSH CUSTOMER PROGRAM MANAGER PFSH: Medical History Cervical cancer History of hemorrhoids History of hemorrhoids Hypoglycemic disorder Iron deficiency anemia Migraine Surgical History H/O breast biopsy Family History Mother Breast cancer Grandmother Hypertension Hypercholesteremia Grandfather Hypertension Hypercholesteremia Other Diabetes Denies family history of Colon cancer Ovarian cancer Heart disease Uterine cancer Thyroid disease Stroke Other Female Reproductive History: Hx Age of Menarche: 13 Duration of menses: 6-7 days Date of Last Menstrual Period: 03/14/22 Cycle Length: 28 days Menstrual flow: normal/abnormal: normal Contraception: Contraception History Comment: OCP's, Nexplanon and IUD which body rejected. History History History 3 Term 2 0 Miscarriages/Ectopic 0 Living Children 2 Care LAXMI Calculator Estimated Delivery Date Method Current WG Current Estimate 12/19/22 LMP (Certain) 38w 4d Other Estimates 12/21/22 Ultrasound #1 38w 2d Vitals/I&O/Wt Last Vital Signs Pulse 69 12/09/22 12:11 BP 108/55 12/09/22 12:11 O2 Del Method 12/09/22 10:32 12/08/22 12/09/22 12/09/22 22:59 06:59 14:59 Intake Total 0.967 / 0.967 Balance 0.967 / 0.967 Weight last 48 hrs Weight 68.039 kg Physical Exam Const: COMMON NORMALS: no acute distress, patient oriented x3, healthy appearing, alert and well nourished HENMT: COMMON NORMALS: normocephalic Resp: COMMON NORMALS: normal respiratory effort and clear to auscultation bilaterally Cardio: COMMON NORMALS: regular rate, regular rhythm, S1 normal heart sound present and S2 normal heart sound present Back/Pelvis: OTHER: Cx exam as above Extremity: COMMON NORMALS: no clubbing, cyanosis or edema Neuro: COMMON NORMALS: patient oriented x3, CN's II-XII intact bilaterally and moves all extremities Data 12/09/22 10:00 Results OB Labs 3 07/02/22 iron total: 37 TBIC: 390 % Saturation: 9,5 Ferritin: 7 05/09/22 Blood type: A POSITIVE Antibody screen: Negative Intake CBC: WBC 6.0, Hgb 9.5, Hct 31.4, MCV 78.3, Plt 336. Rubella: positive Hepatitis B surface antigen: Nonreactive Hepatitis C antibody: Nonreactive RPR: Nonreactive HIV: Nonreactive Urine drug screen: Negative Urine culture: 06/04/2022 Cystic fibrosis: Negative Panorama: LOW RISK-MALE 10/07/22 Gonorrhea: NEGATIVE Chlamydia: NEGATIVE date: Pap smear: 10/07/22 28 week CBC: WBC 10.9, Hgb 9.1, Hct 30.5, MCV 84.3, Plt 336. GCT: 144 10/21/22 28 week CBC: 10.4 HGB 7.8 HCT 26.5 MCV 82.6 Plt 354 10/21/22 3 HR GTT FASTIN 1HR: 104 2HR: 107 3HR: 86 11/25/2022 GBS A&P Assessment and plan (1) Supervision of other high risk , antepartum: A. 1. 38.4 wk IUP 2. SROM 3. Multiparity 4. GBS negative P. Admit to LD for management of Labor. Augment labor with Pitocin . (2) Anemia affecting : Attestations Medical Necessity Statement*: Management of labor at 38.4 wk IUP with SROM. Coding Level of Care Code Acute Code for Chg Fwd Diagnoses Supervision of other high risk , antepartum O09.899 Anemia affecting O99.019
--- NOTE | 2022-12-09 15:36 | PM.OBGYPN ---
DISTRIBUTION SYSTEMS SERVICEPERSON Subjective Subjective: Interval history: Pt doing well. No complaints. EFM- with 2 spontaneous decel, pt on right side, repositioned. Then severalLate decels with Mod variability noted, will OBS closely. Contractions q 2 . Cx- 1cm/90%/-4 vtx, clear fluid. Reviewed EFM with pt and labor progression minimal. Reviewed C/S of NRFM occurs. Labor: Station: -4 Amniotic Membrane Status: Ruptured Vitals/I&O/Wt Last Vital Signs Temp 97.5 F L 12/09/22 12:44 Pulse 69 12/09/22 15:26 BP 113/59 12/09/22 15:26 O2 Del Method 12/09/22 10:32 12/09/22 12/09/22 12/09/22 06:59 14:59 22:59 Intake Total 2.300 / 2.300 Balance 2.300 / 2.300 Weight last 48 hrs Weight 68.039 kg Data 12/09/22 10:00 A&P Assessment and plan (1) Supervision of other high risk , antepartum: A. 38.4 wk IUP with SROM P. Close monitoring d/t late decels and min. cervical change. Attestations Medical Necessity Statement*: labor management Coding Level of Care Code Acute Code for Chg Fwd Diagnoses Supervision of other high risk , antepartum O09.899
[2022-12-09] MEDS: ondansetron 2 mg/ML SDV 2 mL 4 MG IVP (16:42)
[2022-12-09] MEDS: lactated ringers 1,000 ML 999 ML IV (16:43)
--- NOTE | 2022-12-09 17:42 | P.ANESASSM_ITS ---
Pre-Anesthetic Assessment Height/Weight: Height 1.63 m Weight 68.039 kg Temp Pulse BP Pulse Ox O2 Del Method 98.1 F 77 121/68 100 12/09/22 16:35 12/09/22 17:37 12/09/22 17:37 12/09/22 17:33 12/09/22 10:32 Preop Diagnosis: Labor pain DOMINIC Was Beta Marilyn taken within 24 hours: N/A Was Clonidine taken within 24 hours: N/A Social No alcohol and No tobacco Exam alert, oriented x 3, clear to auscultation bilaterally and regular rate & rhythm Airway Submandibular: within normal limits Cervical ROM: within normal limits Mallampati: Class II Dentition: full History/ROS No significant history except as noted and No significant complaints Pulmonary None reported CV/HEM Anemia, Arrythmia and None reported None reported Hepatic None reported GI Gastroesophageal Reflux Disease Metabolic None reported Musc/skel None reported Neuropsych None reported Anesthetic Plan ASA status: 2 Anesthesia: Anesthesia Evaluation and Regional (specify below) Other: DOMINIC Risk of > 500 ml blood loss (7ml/kg in children): No Medications/Allergies Home Medications Medication Instructions Recorded Confirmed Last Taken Type fluticasone propionate 50 1 spray intranasal DAILY 10/07/22 12/02/22 Unknown Hi story mcg/actuation nasal spray,suspension prenat.vits,canelo,[id number] 1 tab PO DAILY 10/07/22 12/06/22 11/29/22 History loratadine 10 mg tablet (Claritin) 10 mg PO DAILY 11/18/22 12/02/22 11/29/22 History ferric carboxymaltose (Injectafer) 750 mg (15 mL) IV Q7D 2 doses #30 12/04/22 12/06/22 Unknown Rx mL Allergies Allergy/AdvReac Type Severity Reaction Status Date / Time fentanyl Allergy Severe ADR-Vomitin Verified 12/02/22 09:54 g latex Allergy Intermediate ALGY-Hives Verified 12/02/22 09:54 peach Allergy Intermediate rash Verified 12/02/22 09:54 strawberry Allergy Intermediate rash Verified 12/02/22 09:54 Current Medications Generic Name Dose Route Start Last Admin Trade Name Freq PRN Reason Stop Dose Admin Acetaminophen 650 mg 12/09/22 09:55 12/09/22 10:37 Acetaminophen 325 Mg Tablet PO 650 mg Q6H PRN Administration Mild pain or temp > 100.4 Dextrose/Lactated Ringer's 1,000 mls @ 125 mls/hr 12/09/22 10:00 12/09/22 11:40 Dextrose 5%-Lactated Ringers IV 125 mls/hr .Q8H MICHAEL Administration Oxytocin 30 unit in 500 mls @ 2 mls/hr 12/09/22 11:30 12/09/22 12:29 Pitocin IV 6 milliunit/min .Q24H MICHAEL 6 mls/hr Titration Protocol 2 MILLIUNIT/MIN Lactated Ringer's 1,000 mls @ 999 mls/hr 12/09/22 16:25 12/09/22 16:43 Lactated Ringers IV 999 mls/hr .Q1H1M PRN Administration See label comments Ondansetron HCl 4 mg 12/09/22 09:55 12/09/22 16:42 Ondansetron 2 Mg/Ml Sdv 2 Ml IVP 4 mg Q4H PRN Administration NAUSEA AND VOMITING PFSH Anesthesia Medical History Cervical cancer History of hemorrhoids History of hemorrhoids Hypoglycemic disorder Iron deficiency anemia Migraine Surgical History H/O breast biopsy Family History Mother Breast cancer Grandmother Hypertension Hypercholesteremia Grandfather Hypertension Hypercholesteremia Other Diabetes Denies family history of Colon cancer Ovarian cancer Heart disease Uterine cancer Thyroid disease Stroke Female Reproductive History Date of last menstrual period: 03/14/22 : 3 Data Anesthesia 12/09/22 10:00 Short CBC 12/09/22 Range/Units 10:00 WBC 10.0 (4.0-10.0) 10^3/uL Hgb 7.6 L (11.5-15.3) g/dL Hct 29.4 L (37.0-47.0) % MCV 87.2 (81-99) fl Plt Count 226 (130-400) 10^3/cmm Neut % (Auto) 77.2 % Neut # (Auto) 7.70 (1.8-7.7) 10^3/uL Cardiac Studies: No Data to Display
--- NOTE | 2022-12-09 17:45 | P.ANES_ITS ---
Anesthesia Procedures Procedure/Date: 12/09/22 DOMINIC Epidural: Time Out Performed: Yes Consents Signed: Procedure Consent Consent: requested by attending/covering physician, from patient, risks and bene fits reviewed and patient agrees to proceed Lumbar Level: L3-L4 Epidural position: sitting Epidural procedure: sterile prep of area, 1% lidocaine to numb the area, 18 g needle, neg for paresthesia, test dose given, 1.5% xylocaine 1:200k epi (5cc), 0.2% Ropivacaine bolus ml (5cc), placed PCEA, no systemic response, sterile dressing applied, L.U.D. no apparent complications and 0.2% Ropiavacaine @ mls/hr (11cc/hor. MELVI at 6cm. Pt tolerated well)
--- NOTE | 2022-12-09 18:29 | PM.OBGYPN ---
PETROLEUM SUPPLY SPECIALIST Subjective Subjective: Interval history: Pt doing well, received Epidural after request for pain relief. Just given fluid bolus for decreased BP. Cx-unchanged. EFM-Reassuring few Variables noted. Ctxs q 2-3 . Discussed Latent phase of labor and at this point no cervicl change, but with reassuring EFM, will continue to monitor and wait unless baby status indicates need for C/S. Pt questioned whether her hx of Cervical cone would make cervix not dilate, I explained that is a possible reason but at 90% effacement I would hope it would continue and that dilation will occur but if not section will be advised. Pt and family undertands. Labor: Station: -3 Amniotic Membrane Status: Ruptured Monitor Mode: External Contraction Pattern: Irregular Vitals/I&O/Wt Last Vital Signs Temp 98.2 F 12/09/22 17:46 Pulse 71 12/09/22 18:25 BP 119/67 12/09/22 18:25 Pulse Ox 100 12/09/22 18:23 O2 Del Method 12/09/22 10:32 12/09/22 12/09/22 12/09/22 06:59 14:59 22:59 Intake Total 2.300 / 2.300 Balance 2.300 / 2.300 Weight last 48 hrs Weight 68.039 kg Physical Exam Urinary Catheter Management: Vaz: Cath Placed During This Visit: yes Reason for Continuing Indwelling Catheter: Required Immobilization for Trauma or Surgery or Anesthesia Urinary Catheter Date of Insertion: 12/09/22 Urinary Catheter Time of Insertion: 18:15 Data 12/09/22 10:00 A&P Assessment and plan (1) Supervision of other high risk , antepartum: A. Prolonged Latent phase of labor with SROM Hx of Cervical Cone Bx. GBS neg P. Continue care discussed C/S if NRFM occurs. Attestations Medical Necessity Statement*: Management of Labor Coding Level of Care Code Acute Code for Chg Fwd Diagnoses Supervision of other high risk , antepartum O09.899
[2022-12-09] MEDS: alum-mag-hydroxide-sime 30 mL UDC PO (18:40)
--- NOTE | 2022-12-09 21:30 | P.PCNOB_ITS ---
Delivery Note: Date of delivery: December 09, 2022 Pre-delivery diagnoses: 1. 32-year-old G3, P2 at 38.4 weeks gestation 2. Latent phase of labor?prolonged 3. GBS negative 4. Multigravida 5. Anemia affecting Post-delivery diagnoses: Same Procedure: 32-year-old G3, P3 delivered after prolonged latent phase of labor precipitously a viable male infant from OA presentation, followed by flexing of the maternal thighs with serial pushing and rotation of the anterior shoulder to deliver followed by the posterior shoulder with the remainder of the body to follow. Spontaneous cry was noted. Cord blood and pH obtained and handed off. After delayed clamping of the cord, the umbilical cord was clamped x2 and transected and the baby placed on the maternal abdomen with stimulation and drying by the nursing staff. The baby was assessed and evaluated for maternal bonding. Three-vessel cord was noted, the uterus massaged, and the placenta presented in a Jain presentation with trailing membranes. Pitocin IV solution was given in a bolus manner. The uterus massaged and noted to be firm with minimal bleeding. The uterus and vaginal vault were explored and a few clots removed. The vaginal vault and perineum noted to be intact with no lacerations. The perineum cleansed. Mother and are both in stable and satisfactory condition. Op report anesthesia: Epidural Delivering Physician: Emerita Castillo DO Estimated blood loss (mL): 300 Findings: Normal viable male Apgars 8/9 wt- 6#15 Delivery: viable male Post-Delivery Status: Stable History History History 3 Term 2 0 Miscarriages/Ectopic 0 Living Children 2 Past Pregnancies Del. Date GA/Weeks Outcome Route Wt Inf Gender Labor Lgth Comp. Anesth esia Location 12/09/22 38 live - full term Vaginal 3.118 kg Male prolong ed latent phase Precipitous Delivery regional A&P Assessment and plan (1) Supervision of other high risk , antepartum: A. 1. Spontaneous vaginal delivery?viable male 2. Severe anemia affecting 3. Prolonged latent phase of labor 4. Precipitous delivery 5. History of cervical cone biopsy?abnormal Pap smear 6. Multiparity P. 1. Begin routine care 2. Hemoglobin and hematocrit in 4 hours.. Coding Level of Care Code Acute Code for Chg Fwd Diagnoses Supervision of other high risk , antepartum O09.899
[2022-12-09] MEDS: oxytocin 30 UNIT/500 ML BAG 600 UNIT IV (22:08)
--- NOTE | 2022-12-09 23:38 | PC.NURSE ---
Patient got up to the bathroom at 2255 and had 300ml of urine out. When she got back to bed rubbed her at 2310 and uterus was back down to one below midline with scant red blood. Patient reports no pain at this time. I instructed her to notify us if she has any gushes of blood, passes any clots, or if she starts feeling light headed in anyway. She verbalized understanding.
[2022-12-10] VITALS (18 sets, daily range): BP systolic 97–117; BP diastolic 52–88; PULSE 67–91; RESP 15–18; TEMP 36.4–36.9; O2SAT 97–100
[2022-12-10 00:39] LABS: Hematocrit 24.6 % (37.0-47.0); Hemoglobin 7.2 g/dL (11.5-15.3); Mean Corpuscular HGB Conc 29.3 g/dL (30.0-36.0); Mean Corpuscular Hemoglobin 22.6 pg (28.0-34.0); Mean Corpuscular Volume 77.1 fl (81-99); Mean Platelet Volume 9.4 fL (7.4-10.4); Platelet Count 280 10^3/cmm (130-400); Red Blood Count 3.19 10^6/uL (4.1-5.3); Red Cell Distribution Width 16.3 % (12.1-15.1)
[2022-12-10 01:03] LABS: Absolute Neutrophil 18.2 10^3/cmm (1.4-6.5); Absolute Segmented Neutrophil 18.2 10/cmm (1.6-7.1); Eosinophils 0 %; Lymphocytes 5 %; Monocytes Absolute 0.8 10^3/cmm (0.1-0.6); Platelet Estimate Normal (Normal); Segmented Neutrophils 91 %; Total Cells Counted 100 (0-100)
[2022-12-10] MEDS: acetaminophen 325 mg Tablet 650 MG PO ×2 (01:05→07:00)
--- NOTE | 2022-12-10 03:19 | PC.NURSE ---
During rounds mother stated that her mild headache she had earlier was gone but that she was struggling to sleep due to her adrenaline and anxiety. She states that she does not have any dizziness or lightheaded at this time that my body is use to my blood being this low and next week I have an iron infusion and that will help me feel better. Her bleeding has been scant to small since delivery. I educated patient on how much blood loss was normal and when to notify her nurse. She verbalized understanding and had no further questions at this time.
--- NOTE | 2022-12-10 05:41 | PC.NURSE ---
Fundus noted to be at line of umbilicus left of midline patient reported that she needed to pee. She went to the bathroom and had 700ml of urine out. I rubbed her fundus again after she got back in bed and it was noted to be firm. Her bleeding has been controlled throughout he shift being scant to small. She has used three pads total since delivery none of which were soaked through. She denies pain at this time.
[2022-12-10] MEDS: prenatal vitamin Capsule 1 CAP PO (09:37)
[2022-12-10] MEDS: docusate sodium 100 mg Capsule PO ×2 (09:37→20:24)
[2022-12-10] MEDS: ibuprofen 800 mg tablet PO ×3 (09:37→20:24)
[2022-12-10 09:47] LABS: Hematocrit 23.2 % (37.0-47.0); Hemoglobin 6.9 g/dL (11.5-15.3); Mean Corpuscular HGB Conc 29.7 g/dL (30.0-36.0); Mean Corpuscular Hemoglobin 23.1 pg (28.0-34.0); Mean Corpuscular Volume 77.6 fl (81-99); Platelet Count 255 10^3/cmm (130-400); Red Blood Count 2.99 10^6/uL (4.1-5.3); Red Cell Distribution Width 16.6 % (12.1-15.1); White Blood Count 16.4 10^3/uL (4.0-10.0)
--- NOTE | 2022-12-10 12:13 | P.PN_ITS ---
SEWING MACHINE ATTACHMENT TESTER Subjective Subjective: Interval history: Patient doing well, tolerating regular diet and voiding. Patient complained of headache and dizziness which increases with ambulation. She denies nausea vomiting or heavy vaginal bleeding. Patient is breast-feeding and caring for without nursing assistance. We discussed her headache and dizziness possibly being from severe anemia, we also discussed her iron transfusion which she has had 1 but has not been scheduled for #2. Discussed blood transfusion x2 units since she is symptomatic. Patient understands and agrees.. Labor: Station: +2 Amniotic Membrane Status: Ruptured Monitor Mode: Palpation Contraction Pattern: Regular Vitals/I&O/Wt Last Vital Signs Temp 97.6 F 12/10/22 09:46 Pulse 80 12/10/22 09:46 Resp 15 12/10/22 09:46 BP 106/67 12/10/22 09:46 Pulse Ox 97 12/10/22 09:46 O2 Del Method 12/10/22 09:46 12/09/22 12/10/22 12/10/22 22:59 06:59 14:59 Intake Total 2777.7 / 2780.000 1352 / 4132.000 Output Total 500 / 500 1000 / 1500 Balance 2277.7 / 2280.000 352 / 2632.000 Weight last 48 hrs Weight 68.039 kg Physical Exam Const: COMMON NORMALS: patient oriented x3 Back/Pelvis: OTHER: Abdomen?soft, fundus firm. Lochia?light. Extremity: COMMON NORMALS: no clubbing, cyanosis or edema and no calf tenderness Neuro: COMMON NORMALS: patient oriented x3, CN's II-XII intact bilaterally, moves all extremities and deep tendon reflexes 2+ bilaterally Urinary Catheter Management: Vaz: Cath Placed During This Visit: yes, but has since been removed by the nurse Reason for Continuing Indwelling Catheter: Decision to DC Catheter Urinary Catheter Date of Insertion: 12/09/22 Urinary Catheter Time of Insertion: 18:15 Date Urinary Catheter Removed: 12/09/22 Time Urinary Catheter Discontinued: 21:10 Data 12/10/22 09:36 A&P Assessment and plan (1) Supervision of other high risk , antepartum: A. 1. S/p viable male 2. Symptomatic anemia (Hgb 6.9) (2) Anemia affecting : P. Transfuse 2 units packed red blood cells and recheck H&H 4 hours after second unit. Probable discharge tomorrow 12/11/[address] Duran. Attestations Medical Necessity Statement*: care Coding Level of Care Code Acute Code for Chg Fwd Diagnoses Supervision of other high risk , antepartum O09.899 Anemia affecting O99.019
--- NOTE | 2022-12-10 22:46 | PC.NURSE ---
This nurse tranfused one unit of PRBC to patient per Dr. Castillo orders. Patient tolerated procedure well. Vitals are documented in chart. Patient denies any pain at this time. Dr. Castillo would like CBC to be repeated in 4 hours which will be 0240. Patient verbalized understanding at this time.
[2022-12-11] MEDS: lanolin oint 7 gm 1 APPLIC TOPICAL (00:03)
[2022-12-11 02:25] LABS: Hematocrit 25.3 % (37.0-47.0); Hemoglobin 7.7 g/dL (11.5-15.3); Mean Corpuscular HGB Conc 30.4 g/dL (30.0-36.0); Mean Corpuscular Hemoglobin 23.9 pg (28.0-34.0); Mean Corpuscular Volume 78.6 fl (81-99); Mean Platelet Volume 9.7 fL (7.4-10.4); Platelet Count 237 10^3/cmm (130-400); Red Blood Count 3.22 10^6/uL (4.1-5.3); Red Cell Distribution Width 16.8 % (12.1-15.1); White Blood Count 15.4 10^3/uL (4.0-10.0)
[2022-12-11 02:55] LABS: Absolute Segmented Neutrophil 12.3 10/cmm (1.6-7.1); Lymphocytes 16 %; Segmented Neutrophils 80 %; Total Cells Counted 100 (0-100)
[2022-12-11 02:56] LABS: Absolute Eosinophils 0.3 10^3/cmm (0.0-0.7); Absolute Neutrophil 12.3 10^3/cmm (1.4-6.5); Eosinophils 2 %; Lymphocytes Absolute 2.5 10^3/cmm (1.2-3.4); Monocytes Absolute 0.3 10^3/cmm (0.1-0.6); Platelet Estimate Normal (Normal)
[2022-12-11 04:03] VITALS: BP 105/66; PULSE 76; RESP 17; TEMP 36.6; O2SAT 99
--- NOTE | 2022-12-11 06:58 | P.DS_ITS ---
Discharge Providers Date of Admission: 12/09/22 09:47 Date of Discharge: December 11, 2022 Attending Provider at Admission: Chantelle Castillo DO Attending Provider at Discharge: Chantelle Castillo DO Primary Care Provider: Cami Duran MD Diagnoses at Discharge Discharge Diagnosis (1) Supervision of other high risk , antepartum: Status: Acute (2) Anemia affecting : Status: Acute Reason for Visit Reason for Visit: Possible ROM Hospital Course Hospital Course The patient was admitted for PROM at term. She had augmentation of labor. She had spontaneous delivery of a term . She was acutely anemic during , and , she received 2 units of PRBC. She was feeling well on PPD#2 and was ready for discharge. Physical Exam Narrative: The patient is doing well this morning. No concerns. She is ambulating, tolerating a regular diet and pain is well controlled. Const: COMMON NORMALS: no acute distress, average body habitus, patient oriented x3, no limitations, healthy appearing, alert and well nourished GE NERAL APPEARANCE: cooperative, comfortable, well kempt and well developed ORIENTATION/CONSCIOUSNESS: Yes awake, Yes oriented to person, Yes oriented to place and Yes oriented to time Resp: COMMON NORMALS: normal respiratory effort EFFORT & INSPECTION: Yes able to speak in complete sentences GI: COMMON NORMALS: Soft to palpation and non-tender PALPATION: Yes Soft to palpation Extremity: COMMON NORMALS: no calf tenderness Neuro: COMMON NORMALS: patient oriented x3 SENSORIUM/ORIENTATION: Yes alert, Yes oriented to person, Yes oriented to place and Yes oriented to time Psych: COMMON NORMALS: mental status grossly normal, Normal thought process present, cooperative, normal affect and speech normal APPEARANCE: Yes well kempt SPEECH: Yes normal speech THOUGHT PROCESS: Normal thought process present Urinary Catheter Management: Vaz: Cath Placed During This Visit: yes, but has since been removed by the nurse Reason for Continuing Indwelling Catheter: Decision to DC Catheter Urinary Catheter Date of Insertion: 12/09/22 Urinary Catheter Time of Insertion: 18:15 Date Urinary Catheter Removed: 12/09/22 Time Urinary Catheter Discontinued: 21:10 Discharge Data Studies Completed and Pending Laboratory Results WBC 15.4 10^3/uL (4.0-10.0) H 12/11/22 02:15 RBC 3.22 10^6/uL (4.1-5.3) L 12/11/22 02:15 Hgb 7.7 g/dL (11.5-15.3) L 12/11/22 02:15 Hct 25.3 % (37.0-47.0) L 12/11/22 02:15 MCV 78.6 fl (81-99) L 12/11/22 02:15 MCH 23.9 pg (28.0-34.0) L 12/11/22 02:15 MCHC 30.4 g/dL (30.0-36.0) 12/11/22 02:15 RDW 16.8 % (12.1-15.1) H 12/11/22 02:15 Plt Count 237 10^3/cmm (130-400) 12/11/22 02:15 MPV 9.7 fL (7.4-10.4) 12/11/22 02:15 Neut % (Auto) 77.2 % 12/09/22 10:00 Lymph % (Auto) 12.3 % 12/09/22 10:00 [place] % (Auto) 7.9 % 12/09/22 10:00 Eos % (Auto) 0.6 % 12/09/22 10:00 Baso % (Auto) 0.5 % 12/09/22 10:00 Neut # (Auto) 7.70 10^3/uL (1.8-7.7) 12/09/22 10:00 Lymph # (Auto) 1.2 10^3/uL (0.8-4.8) 12/09/22 10:00 [place] # (Auto) 0.8 10^3/uL (0.2-0.9) 12/09/22 10:00 Eos # (Auto) 0.1 10^3/uL (0.0-0.8) 12/09/22 10:00 Baso # (Auto) 0.1 10^3/uL (0.0-0.1) 12/09/22 10:00 Nucleated RBC % (auto) 0 % 12/09/22 10:00 Total Counted 100 (0-100) 12/11/22 02:15 Atypical Lymphs % 0.0 % (0-5) 12/11/22 02:15 Absolute Neutrophils 12.3 10^3/cmm (1.4-6.5) H 12/11/22 02:15 Segmented Neutrophils 80 % 12/11/22 02:15 Abs Segm Neuts (Man) 12.3 10/cmm (1.6-7.1) H 12/11/22 02:15 Band Neutrophils 0.0 % 12/11/22 02:15 Abs Band Neuts (Man) 0.0 10^3/cmm (0.0-1.2) 12/11/22 02:15 Absolute Lymphocytes 2.5 10^3/cmm (1.2-3.4) 12/11/22 02:15 Lymphocytes (Manual) 16 % 12/11/22 02:15 Monocytes (Manual) 2.0 % 12/11/22 02:15 Absolute Monocytes 0.3 10^3/cmm (0.1-0.6) 12/11/22 02:15 Eosinophils (Manual) 2 % 12/11/22 02:15 Absolute Eosinophils 0.3 10^3/cmm (0.0-0.7) 12/11/22 02:15 Basophils (Manual) 0.0 % 12/11/22 02:15 Absolute Basophils 0.0 10^3/cmm (0.0-0.2) 12/11/22 02:15 Nucleated RBCs # 0.0 /100WBC 12/09/22 10:00 Platelet Estimate Normal (Normal) 12/11/22 02:15 Blood Type A Positive 12/09/22 10:00 Rho(D) Type Positive 12/09/22 10:00 Antibody Screen Negative 12/09/22 10:00 Crossmatch See Detail 12/09/22 10:00 Vitals Last Vital Signs Temp 97.9 F 12/11/22 04:03 Pulse 76 12/11/22 04:03 Resp 17 12/11/22 04:03 BP 105/66 12/11/22 04:03 Pulse Ox 99 12/11/22 04:03 O2 Del Method 12/11/22 04:03 Discharge Plan Discharge Patient Disposition: Home Condition: Stable Prescriptions: New docusate sodium 100 mg Capsule 100 mg PO BID Qty: 60 6RF Hematogen FA 200-250-0.01-1 mg capsule 1 cap PO BID Qty: 60 6RF Continued prenat.vits,canelo,amp-eipc-kbtoc Tablet 1 tab PO DAILY fluticasone propionate 50 mcg/actuation spray,suspension 1 spray intranasal DAILY Rx Instructions: administer into each nostril loratadine [Claritin] 10 mg tablet 10 mg PO DAILY Discharge Orders: Discharge Order (Routine); Ordered 12/11/22 Ordered By: Cami Duran Patient Instructions: Depression (DC), Bleeding (DC), Preeclampsia and Eclampsia After Delivery (GEN), Hemorrhage (DC), OB Discharge Report, OB Food/Drug Interaction Guide, OB Care at Home, Opioid Safety, OB Home Care, OB Vaginal Deliveries - [facility] Discharge Attestations Time Spent in Discharge Care*: less than 30 min Quality Metrics Clinical Quality Measures [ No reported AMI, CVA or VTE this stay] Coding Level of Care Code Acute Code for Chg Fwd Diagnoses Supervision of other high risk , antepartum O09.899 Anemia affecting O99.019
[2022-12-11 10:00] VITALS: BP 112/73; PULSE 74; RESP 16; TEMP 36.8; TEMP 36.9
[2022-12-11] MEDS: docusate sodium 100 mg Capsule PO (10:02)
[2022-12-11] MEDS: ibuprofen 800 mg tablet PO (10:02)
[2022-12-11] MEDS: prenatal vitamin Capsule 1 CAP PO (10:02)
--- NOTE | 2022-12-11 11:41 | ANE.PACU2 ---
Inpatient post-anesthesia follow up: Airway intact: Yes Vital signs: Temperature 98.4 F Pulse Rate 74 Respiratory Rate 16 Blood Pressure 112/73 Pulse Oximetry 99 Oxygen Delivery Me thod Room Air Oxygen Flow Rate Fraction of Inspir ed Oxygen Hydration adequate: Yes Nausea and vomiting: No Pain level: 1 Mental status: Baseline
== END 2022-12-11 10:30 | disposition home or self-care (01) | DRG 807 ==
LOC: OPOB 09:48 → OBGYN 09:48
PROVIDERS: Admitting Provider Obstetrics & Gynecology; PCP Obstetrics & Gynecology; Visit Provider Obstetrics & Gynecology
DX: O99.02 Anemia complicating childbirth (principal); Z37.0 Single live birth; D64.9 Anemia, unspecified; O99.344 Other mental disorders complicating childbirth; F79 Unspecified intellectual disabilities; O63.1 Prolonged second stage (of labor); Z3A.38 38 weeks gestation of pregnancy; F41.1 Generalized anxiety disorder; Z85.41 Personal history of malignant neoplasm of cervix uteri
CPT/HCPCS: 12345; 36415; 36430; 51702; 59025; 59409; 83986; 85007; 85025; 85027; 86850; 86900; 86920; 96374; 98960; 99211; J2405; J2590; J2795; J7120; J7121; P9016

== ENCOUNTER → 2023-04-23 10:19 | Outpatient (BNVA) | payer MEDICAID, SELFPAY | PROVIDERS: PCP Family Medicine; Visit Provider Family Medicine | DX: T14.8XXA Other injury of unspecified body region, initial encounter (principal); X58.XXXA Exposure to other specified factors, initial encounter | CPT/HCPCS: 80053; 82728; 83550; 85025; 85610 ==

== ENCOUNTER → 2023-11-11 09:31 | Outpatient (BNVA) | payer MEDICAID, SELFPAY | PROVIDERS: PCP Family Medicine; Visit Provider Nurse Practitioner Family | DX: K58.1 Irritable bowel syndrome with constipation (principal) | CPT/HCPCS: 80053; 83690; 85025 ==

== ENCOUNTER → 2024-01-13 08:33 | Outpatient (BNVA) | payer SELFPAY | PROVIDERS: PCP Family Medicine; Visit Provider Psychiatry & Neurology Psychiatry | DX: F41.1 Generalized anxiety disorder (principal); Z79.899 Other long term (current) drug therapy | CPT/HCPCS: 80061; 83036 ==

== ENCOUNTER → 2024-05-04 09:05 | Outpatient (BNVA) | payer MEDICAID, SELFPAY ==
[2024-02-23 12:12] VITALS: BP 107/66; BMI 19.1
== END ==
PROVIDERS: PCP Family Medicine; Visit Provider Nurse Practitioner Family
DX: Z79.899 Other long term (current) drug therapy (principal); K58.1 Irritable bowel syndrome with constipation; D64.9 Anemia, unspecified; R10.11 Right upper quadrant pain
CPT/HCPCS: 74018; 80053; 80061; 81003; 82607; 82728; 83036; 83540; 84443; 85025

== ENCOUNTER 2024-05-06 11:21 | Emergency (ER) | payer MEDICAID, SELFPAY ==
[2024-02-23 12:12] VITALS: BP 107/66; BMI 19.1
[2024-05-06 11:41] VITALS: BP 110/67; PULSE 75; RESP 16; TEMP 36.6; O2SAT 100; BMI 17.6
[2024-05-06 11:45] VITALS: BP 110/67; PULSE 75; RESP 15; TEMP 36.6; O2SAT 100; BMI 17.6
[2024-05-06 12:29] LABS: Basophils % 0.6 %; Eosinophils # 0.2 10^3/uL (0.0-0.8); Eosinophils % 3.3 %; Hematocrit 35.2 % (36-47); Lymphocytes # 1.5 10^3/uL (0.8-4.8); Lymphocytes % 28.7 %; Mean Corpuscular Hemoglobin 29.7 pg (27-33); Mean Platelet Volume 9.1 fL (7.4-10.4); Monocytes # 0.6 10^3/uL (0.2-0.9); Monocytes % 10.9 %; Neutrophils # 2.94 10^3/uL (1.8-7.7); Neutrophils % 56.3 %; Nucleated Red Blood Cells % 0 %; Platelet Count 203 10^3/cmm (157-399); Red Blood Count 3.91 10^6/uL (3.85-5.65); Red Cell Distribution Width 12.3 % (12.1-15.1); White Blood Count 5.22 10^3/uL (3.29-11.43)
--- NOTE | 2024-05-06 12:33 | ED_ITS ---
HPI - Abdominal Pain 2 General: Chief Complaint: Abdominal Pain Stated Complaint: bowel problems, abd pain Time Seen by Provider: 05/06/24 11:26 History of Present Illness: 34-year-old female presents emergency ro om abdominal pain and cramping. She has irritable bowel and has been very constipated lately she has seen her doctor couple days ago they gave her lactulose she did not have much of a result was at this point still having pain no fever sweats chills no dysuria urgency or frequency she has had problems with hemorrhoids in the past she has had a couple of blood-streaked stools but no large amounts of blood. No rectal pain. Associated Symptoms: Denies chills, dysuria and fever(s) Related Data Home Medications Medication Instructions Recorded Confirmed fluticasone propionate 50 1 spray intranasal DAILY 10/07/22 05/06/24 mcg/actuation nasal spray,suspension loratadine 10 mg tablet (Claritin) 10 mg PO DAILY PRN allergies 11/18/22 05/06/24 diclofenac sodium 1 % topical gel 2 g topical QID PRN Pain 05/06/24 05/06/24 (Voltaren Arthritis Pain) vit no.95-ferrous 1 tab PO DAILY 05/06/24 05/06/24 fumarate 28 mg-folic acid 800 mcg tablet () Previous Rx's Medication Instructions Recorded albuterol sulfate 90 mcg/actuation 1 inh inhalation QID PRN shortness 03/25/23 aerosol inhaler of breath or wheezing #8.5 grams celecoxib 100 mg capsule (Celebrex) 100 mg PO BID #60 caps 12/31/23 fluoxetine 40 mg capsule (Prozac) 40 mg PO DAILY #30 caps 03/04/24 lactulose 20 gram/30 mL oral 20 g (30 mL) PO DAILY 30 days 05/04/24 solution #1,200 mL Allergies Allergy/AdvReac Type Severity Reaction Status Date / Time fentanyl Allergy Severe ADR-Vomitin Verified 05/06/24 11:58 g latex Allergy Intermediate ALGY-Hives Verified 05/06/24 11:58 peach Allergy Intermediate rash Verified 05/06/24 11:58 strawberry Allergy Intermediate rash Verified 05/06/24 11:58 Review of Systems 2 Const: Denies: fever(s) or chills Card: Denies: chest pain Resp: Denies: dyspnea GI: Denies: abdominal pain : Denies: dysuria, urinary frequency or urinary urgency Musc: Denies: neck pain or back pain Skin/Breast: Denies: rash PFSH ED 2 PFSH: Medical History (Updated 05/06/24 @ 12:59 by Gurpreet Bethea DO) Elevated alkaline phosphatase level Medication management Anemia Flu-like symptoms Tooth decay Psychiatric care Irritable bowel syndrome with constipation Anemia affecting Supervision of other high risk , antepartum History of abnormal cervical Pap smear History of hemorrhoids Iron deficiency anemia Cervical cancer Migraine History of hemorrhoids Hypoglycemic disorder Surgical History H/O hemorrhoidectomy History of cone biopsy of cervix H/O breast biopsy Family History Mother Breast cancer Grandmother Hypertension Hypercholesteremia Grandfather Hypertension Hypercholesteremia Other CAD (coronary artery disease) Diabetes Lung disease Psychiatric illness Denies family history of Colon cancer Ovarian cancer Clotting disorder Dementia Heart disease Chronic kidney disease (CKD) Anesthesia complication Bleeding disorder Cancer Uterine cancer Thyroid disease Stroke Social History Smoking and tobacco/nicotine status: never used tobacco/nicotine Alcohol intake: never Substance/Drug Use: never Lives independently: Yes Marital status: Single Number of children: 3 Current occupational status: unemployed Janina/Restorationism: None Special janina needs: No Agree to transfusion: Yes Physical Exam 2 Const: COMMON NORMALS: no acute distress GENERAL APPEARANCE: cooperative and comfortable ORIENTATION/CONSCIOUSNESS: Yes awake, Yes oriented to person, Yes oriented to place and Yes oriented to time HENMT: COMMON NORMALS: normocephalic, atraumatic and hearing grossly normal bilaterally HEAD & SCALP: normocephalic and atraumatic Resp: COMMON NORMALS: normal respiratory effort, No retractions, No use of accessory muscles and clear to auscultation bilaterally AUSCULTATION: clear to auscultation bilaterally Cardio: COMMON NORMALS: regular rate, regular rhythm and No murmurs present (Cardio) RATE: regular rate RHYTHM: regular rhythm GI: COMMON NORMALS: Soft to palpation and No hepatosplenomegaly present A USCULTATION: Yes normoactive bowel sounds PALPATION: Yes Soft to palpation, No Tenderness to palpation present (GI), No Guarding due to palpation present (GI) and Yes No hepatosplenomegaly present Extremity: COMMON NORMALS: normal to inspection, capillary refill normal, no clubbing, cyanosis or edema, no calf tenderness and no pedal edema Neuro: SENSORIUM/ORIENTATION: Yes oriented to person, Yes oriented to place and Yes oriented to time Skin: COMMON NORMALS: no rashes or lesions noted GENERAL SKIN EXAM: no rashes or lesions noted Course 2 Vital Signs: Vital signs: Vital Signs Temperature 97.8 F 05/06/24 11:45 Pulse Rate 71 05/06/24 13:17 Respiratory Rate 16 05/06/24 12:34 Blood Pressure 104/65 05/06/24 13:17 Pulse Oximetry 99 05/06/24 13:17 Oxygen Delivery Me thod Room Air 05/06/24 13:15 MDM - Abdominal Pain Medical Decision Making Patient still having some constipation she is getting some bloody mucousy stools at times as well this is not uncommon for her she has irritable bowel. Her hemoglobin is stable white count is normal abdominal exam is benign. She has a slightly elevated alk phos but her transaminases are otherwise normal. At this point recommend she more aggressively use the lactulose. She is complaining of more cramping across the upper abdomen. She has a [address] home we talked about an enema but I do not think that would be very helpful given where the cramping is located and additionally be very difficult for her to make trip back home to ultimately settled on more aggressive use of the lactulose. Follow-up with her primary care doctor she may need further evaluation given her irritable bowel symptoms have been ongoing for some time. She has not recently been on any antibiotics and her hemoglobin at this time is stable Lab Data 05/06/24 12:11 05/06/24 12:11 Labs/Radiology: Laboratory Results WBC 5.22 10^3/uL (3.29-11.43) 05/06/24 12:11 RBC 3.91 10^6/uL (3.85-5.65) 05/06/24 12:11 Hgb 11.60 g/dL (11.27-16.99) 05/06/24 12:11 Hct 35.2 % (36-47) L 05/06/24 12:11 MCV 90.0 fl (85-98) 05/06/24 12:11 MCH 29.7 pg (27-33) 05/06/24 12:11 MCHC 33.0 g/dL (30-55) 05/06/24 12:11 RDW 12.3 % (12.1-15.1) 05/06/24 12:11 Plt Count 203 10^3/cmm (157-399) 05/06/24 12:11 MPV 9.1 fL (7.4-10.4) 05/06/24 12:11 Neut % (Auto) 56.3 % 05/06/24 12:11 Lymph % (Auto) 28.7 % 05/06/24 12:11 [place] % (Auto) 10.9 % 05/06/24 12:11 Eos % (Auto) 3.3 % 05/06/24 12:11 Baso % (Auto) 0.6 % 05/06/24 12:11 Neut # (Auto) 2.94 10^3/uL (1.8-7.7) 05/06/24 12:11 Lymph # (Auto) 1.5 10^3/uL (0.8-4.8) 05/06/24 12:11 [place] # (Auto) 0.6 10^3/uL (0.2-0.9) 05/06/24 12:11 Eos # (Auto) 0.2 10^3/uL (0.0-0.8) 05/06/24 12:11 Baso # (Auto) 0.0 10^3/uL (0.0-0.1) 05/06/24 12:11 Nucleated RBC % (auto) 0 % 05/06/24 12:11 Nucleated RBCs # 0.0 /100WBC 05/06/24 12:11 Sodium 139 mmol/L (136-145) 05/06/24 12:11 Potassium 4.2 mmol/L (3.5-5.1) 05/06/24 12:11 Chloride 103 mmol/L (98-107) 05/06/24 12:11 Carbon Dioxide 25 mmol/L (22-29) 05/06/24 12:11 Anion Gap 15.2 (5-19) 05/06/24 12:11 BUN 6 mg/dL (6-20) 05/06/24 12:11 Creatinine 0.5 mg/dL (0.5-0.9) 05/06/24 12:11 GFR Calculation 143.0 mL/min (90-130) H 05/06/24 12:11 Glucose 80 mg/dL (65-115) 05/06/24 12:11 Calculated Osmolality 285 mOsm/kg (285-295) 05/06/24 12:11 Calcium 9.3 mg/dL (8.5-10.5) 05/06/24 12:11 Total Bilirubin 0.4 mg/dL (0.15-1.2) 05/06/24 12:11 AST 15 U/L (0-32) 05/06/24 12:11 ALT 9 U/L (0-33) 05/06/24 12:11 Alkaline Phosphatase 148 U/L (35-105) H 05/06/24 12:11 Total Protein 7.8 g/dL (6.6-8.7) 05/06/24 12:11 Albumin 4.5 g/dL (3.5-5.2) 05/06/24 12:11 Globulin 3.3 g/dL (1.3-4.6) 05/06/24 12:11 Lipase 33 U/L (13-60) 05/06/24 12:11 HCG, Qual Negative (Negative) 05/06/24 12:11 Urine Color Yellow (Yellow) 05/06/24 12:30 Urine Appearance Clear (CLEAR) 05/06/24 12:30 Urine pH 6.5 (5-7) 05/06/24 12:30 Ur Specific [place] 1.014 (1.005-1.030) 05/06/24 12:30 Urine Protein Negative (Negative) 05/06/24 12:30 Urine Glucose (UA) Negative (Normal) 05/06/24 12:30 Urine Ketones Negative (Negative) 05/06/24 12:30 Urine Blood Negative (Negative) 05/06/24 12:30 Urine Nitrate Negative (Negative) 05/06/24 12:30 Urine Bilirubin Negative (Negative) 05/06/24 12:30 Urine Urobilinogen 1.0 mg/dL (Negative) 05/06/24 12:30 Ur Leukocyte Esterase Negative (Negative) 05/06/24 12:30 Urine RBC 0-2 /hpf (0-2) 05/06/24 12:30 Urine WBC 0-5 /hpf (0-5) 05/06/24 12:30 Ur Squamous Epith Cells 0-5 /hpf (0-5) 05/06/24 12:30 Amorphous Sediment Not Reportable 05/06/24 12:30 Urine Bacteria None seen /hpf (NONE) 05/06/24 12:30 Hyaline Casts 0.81 /lpf 05/06/24 12:30 All radiology interpretation(s) finalized by discharge Discharge Plan Discharge Patient Disposition: Home Clinical Impression: Constipation Condition: Stable Prescriptions: No Action fluticasone propionate 50 mcg/actuation spray,suspension 1 spray intranasal DAILY Rx Instructions: administer into each nostril celecoxib [Celebrex] 100 mg capsule 100 mg PO BID Qty: 60 8RF fluoxetine [Prozac] 40 mg capsule 40 mg PO DAILY Qty: 30 2RF lactulose 20 gram/30 mL solution 20 g PO DAILY 30 Days Qty: 1200 0RF loratadine [Claritin] 10 mg tablet 10 mg PO DAILY PRN (Reason: allergies) albuterol sulfate 90 mcg/actuation HFA aerosol inhaler 1 inh inhalation QID PRN (Reason: shortness of breath or wheezing) Qty: 8.5 3RF 28 mg iron- 800 mcg Tablet 1 tab PO DAILY Voltaren Arthritis Pain 1 % gel 2 g topical QID PRN (Reason: Pain) Rx Instructions: apply to area of pain Discharge Orders: Discharge ED (Routine); Ordered 05/06/24 Ordered By: Gurpreet Bethea Referrals: Randy Lehman MD [Primary Care Provider] - Discharge Diet: Full LIquid Discharge Activity: Increase activity as tolerated Patient Instructions: Constipation (ED), Opioid Safety, Pain Management Activity Restrictions/Additional Instructions: Thank you for choosing [facility] for your healthcare needs today. It is very important that you follow up as instructed or that you return to the Emergency Department should you have concerns or if your condition changes or worsens in any way. You were seen today with complaints of abdominal pain and cramping. On exam it appears that the source of your pain is constipation. Recommend using lactulose 1 dose every 2 hours until adequate results achieved. Follow-up with your primary care doctor regarding your GI problems particularly the bloody mucus you have had in the stool recently. Coding Level of Care Code ED Care Management Specialist for Chg Veena
[2024-05-06 12:34] VITALS: BP 103/67; PULSE 74; RESP 16; O2SAT 98
[2024-05-06 12:50] LABS: Alanine Aminotransferase 9 U/L (0-33); Albumin Level 4.5 g/dL (3.5-5.2); Alkaline Phosphatase 148 U/L (35-105); Anion Gap 15.2 (5-19); Aspartate Amino Transferase 15 U/L (0-32); Blood Urea Nitrogen 6 mg/dL (6-20); Calcium 9.3 mg/dL (8.5-10.5); Carbon Dioxide 25 mmol/L (22-29); Chloride 103 mmol/L (98-107); Creatinine Clr Calc Pharmacy 126.4382; Globulin 3.3 g/dL (1.3-4.6); Glucose 80 mg/dL (65-115); Lipase 33 U/L (13-60); Osmolality Calculated 285 mOsm/kg (285-295); Potassium 4.2 mmol/L (3.5-5.1); Sodium 139 mmol/L (136-145); Total Bilirubin 0.4 mg/dL (0.15-1.2); Total Protein 7.8 g/dL (6.6-8.7)
[2024-05-06 12:51] LABS: Charge for UA Resulting for Rev
[2024-05-06 12:55] LABS: Bilirubin Urine Negative (Negative); Blood Urine Negative (Negative); Glucose Urine UA Negative (Normal); Ketones Urine Negative (Negative); Leukocyte Esterase Urine Negative (Negative); Nitrate Urine Negative (Negative); Protein Urine Negative (Negative); Specific Gravity, Urine 1.014 (1.005-1.030); Urine Appearance Clear (CLEAR); Urine Color Yellow (Yellow); pH Urine 6.5 (5-7)
[2024-05-06 13:00] LABS: Bacteria Urine None Seen /hpf; Hyaline Casts Urine 0.81 /lpf; RBC Urine 0-2 /hpf (0-2); Squamous Epithelial Cell Urine 0-5 /hpf (0-5); WBC Urine 0-5 /hpf (0-5)
[2024-05-06 13:10] LABS: HCG, Serum Qual Negative (Negative)
[2024-05-06 13:15] VITALS: BP 104/65; PULSE 71; O2SAT 99
[2024-05-06 13:17] VITALS: BP 104/65; PULSE 71; O2SAT 99
== END 2024-05-06 13:18 | disposition home or self-care (01) ==
PROVIDERS: Emergency Medicine; Emergency Provider Family Medicine; PCP Family Medicine
DX: K59.00 Constipation, unspecified (principal); Z85.41 Personal history of malignant neoplasm of cervix uteri
CPT/HCPCS: 36415; 80053; 81003; 81015; 83690; 84703; 85025; 99283

== ENCOUNTER → 2024-07-06 09:05 | Outpatient (BNVA) | payer MEDICAID, SELFPAY ==
[2024-02-23 12:12] VITALS: BP 107/66; BMI 19.1
== END ==
PROVIDERS: PCP Nurse Practitioner Family; Visit Provider Nurse Practitioner Family
DX: R53.83 Other fatigue (principal); W57.XXXA Bitten or stung by nonvenomous insect and other nonvenomous arthropods, initial encounter
CPT/HCPCS: 86003; 86008; 86160; 86618; 86666; 86668; 86757

== ENCOUNTER → 2024-07-15 08:45 | Outpatient (BNVA) | payer MEDICAID, SELFPAY ==
[2024-02-23 12:12] VITALS: BP 107/66; BMI 19.1
== END ==
PROVIDERS: PCP Nurse Practitioner Family; Visit Provider Nurse Practitioner Family
DX: Z91.018 Allergy to other foods (principal); R68.89 Other general symptoms and signs; W57.XXXD Bitten or stung by nonvenomous insect and other nonvenomous arthropods, subsequent encounter
CPT/HCPCS: 82785; 86001; 86003; 86753

== ENCOUNTER → 2025-06-02 16:24 | Outpatient (BNVA) | payer MEDICAID, SELFPAY ==
[2024-02-23 12:12] VITALS: BP 107/66; BMI 19.1
== END ==
PROVIDERS: PCP Nurse Practitioner Family; Visit Provider Nurse Practitioner Family
DX: O03.9 Complete or unspecified spontaneous abortion without complication (principal)
CPT/HCPCS: 84702; 85025